=== PATIENT | female | born 1995 | race Caucasian/White ===

== ENCOUNTER 2022-04-17 14:43 | Outpatient (CLI) | payer SELFPAY ==
--- NOTE | 2022-04-17 15:00 | US_ITS ---
Final Report Patient: ALVIN AU Facility:?[facility] Patient ID:[id number] Site Patient ID:?[id number] Site :?1995 Study:?US OB Pelvis TV DATING/VIABILITY-04/18/2022 8:47:26 AM Ordering Physician:?CÉSAR AYON CPM Final Report: INDICATION: First trimester scan, establish dates. COMPARISON: None. TECHNIQUE: Real-time curry-scale imaging of the pelvis was performed. FINDINGS: Sonographic imaging demonstrates a single living intrauterine gestation. The embryo demonstrates a regular cardiac rate measuring 166 beats per minute. The embryo`s crown-rump length measurement of 1.6 cm corresponds to a gestational age of 8 weeks 0 days with a sonographic due date of 11/27/2022. There is a normal-appearing yolk sac. There are no gross abnormalities noted within the embryo at this early state of development. The gestational sac has a normal appearance. There is a 2.2 x 1.1 x 1.7 cm perigestational hemorrhage. The amount of fluid within the sac appears appropriate for gestational age. The cervix is closed. The myometrium appears normal. The ovaries are of normal size. Corpus luteal cyst left ovary. There are no suspicious fluid collections noted in the cul-de-sac. IMPRESSION: Single living intrauterine with sonographic gestational age 8 weeks 0 days and sonographic due date 11/27/2022. Perigestational hemorrhage measuring 2.2 x 1.1 x 1.7 cm. Dictated by Dl Acosta MD @ 04/18/2022 9:32:31 AM (Electronic Signature)
== END 2022-04-17 14:44 | disposition home or self-care (01) ==
DX: Z34.91 Encounter for supervision of normal pregnancy, unspecified, first trimester (principal); O20.9 Hemorrhage in early pregnancy, unspecified; Z3A.08 8 weeks gestation of pregnancy
CPT/HCPCS: 76817

== ENCOUNTER 2022-07-10 09:38 | Outpatient (CLI) | payer SELFPAY ==
--- NOTE | 2022-07-10 09:45 | CRLHL7_ITS ---
For Patients: As a result of the Century Cures Act, medical imaging exams and procedure reports are released immediately into your electronic medical record. You may view this report before your referring provider. If you have questions, please contact your health care provider. OB ULTRASOUND, 07/10/2022 SHASTA by LMP: 11/27/2022. GA: 20 w, 0 d. . P: 2. INDICATION: anatomy survey. FINDINGS: position: Multiple positions. Cervix: Visualized. Technique: Transabdominal. Length of closed cervix: 3.5 cm. Placenta/cord: Anterior. Technique: Transabdominal. Placenta tip to internal OS: 3.1 cm. Umbilical Cord: 3-vessel cord. Placenta insertion: Central. Amniotic Fluid: 4.2 cm SDP (greater than/equal to: 2- less than 8 cm). SURVEY: Observed Structures Cerebellum: Yes. 20 cm; 20 w 0 d. Cisterna Magna: Yes. 5.2 mm. Nuchal Fold: Yes. 2.2 mm. Lateral Ventricle: Yes. 5.9 mm. CSP: Yes. Midline Falx: Yes. Choroid Plexus: Yes. Spine: Yes. Stomach: Yes. Abd Cord Insertion: Yes. Urinary Bladder: Yes. Kidneys: Yes. Diaphragm: Yes. Nose/lips: Yes. Orbital view: Yes. Profile: Yes. Upper Extremities: Yes. Lower Extremities: Yes. Hands: Yes. Feet: Yes. Four-Chamber Heart: Yes. LVOT: Yes. RVOT: Yes. BPD: 4.4 cm. 19 w 3 d, 24 percent. HC: 16.9 cm. 19 w 4 d, 21 percent. AC: 14.6 cm. 19 w 6 d, 42 percent. FL: 3.1 cm. 19 w 4 d, 26 percent. FL/AC: 21 percent. HC/AC Ratio: 1.2. Heart rate: 159 beats per minute. age by this US: 19 w 5 d. SHASTA by this US: 11/29/2022. EFW: 308 g. Weight: 0 lbs, 11 oz. Percentile by SHASTA: 29 percent. IMPRESSION: Single live intrauterine gestation with a composite gestational age of 19 weeks 5 days and SHASTA of 11/29/2022. No gross anomalies visualized. Bette Knight M.D. Diagnostic/Breast Radiologist [email or web address] KRISTOPHER/fernando king/Dictated by: Bette Knight MD @ 07/10/2022 11:43:00 AM (Electronically Signed)
== END 2022-07-10 09:39 | disposition home or self-care (01) ==
DX: Z34.82 Encounter for supervision of other normal pregnancy, second trimester (principal); Z13.79 Encounter for other screening for genetic and chromosomal anomalies; Z3A.19 19 weeks gestation of pregnancy
CPT/HCPCS: 76805

== ENCOUNTER 2024-02-03 17:46 | Emergency (ER) | payer MEDICAID, SELFPAY ==
[2024-02-03 17:54] VITALS: BP 113/79; PULSE 73; RESP 16; TEMP 36.8; O2SAT 98; BMI 22.7
--- NOTE | 2024-02-03 18:03 | ED_ITS ---
HPI - Abdominal Pain General Time Seen by Provider: 18:03 Date Seen: 02/03/24 Chief Complaint: Abdominal Pain Stated Complaint: bloating, intense pain in mid abdomen Time Seen by Provider: 02/03/24 17:48 Source: patient and RN notes reviewed Mode of arrival: ambulatory Limitations: no limitations History of Present Illness HPI narrative: This 29-year-old female is coming in and the request of the triage nurse she talked to about abdominal pain. Patient had an episode of abdominal pain starting yesterday afternoon, started with bloating and then intense abdominal pain for about 4 hours. She states there is some underlying pain but also a searing type pain within that. No fevers. She had a stool yesterday, feels like she had to push, seemed more stringy. No blood in her stools. She felt a little nauseated yesterday, no vomiting. She has not really eaten much since this started to minimize symptoms. She feels like it might get worse if she did eat. She does not know that eating precipitated this however. She had a little increase of the pain this morning, still feels bloated. Is not burping, is passing some gas. She has not had any abdominal surgeries. She has had 3 pregnancies, is still nursing her youngest 2 is about [id number]. She notes that her 1st episode of this pain happened at age 16. She did have more episodes during her 1st . She will maybe have them about twice a year. No history of pancreatitis. She still has her gallbladder. She actually is not feeling that bad right now. Her dad does have Crohn's disease. MD elicited complaint: abdominal pain Related Data Hx Last Menstrual Period: Breast-feeding currently Home Medications Medication Instructions Recorded Confirmed hydroxyzine HCl 25 mg tablet 25 mg PO QPM PRN anxiety 02/03/24 02/03/24 sertraline 50 mg tablet 50 mg PO DAILY 02/03/24 02/03/24 Allergies Allergy/AdvReac Type Severity Reaction Status Date / Time No Known Drug Allergies Allergy Verified 02/03/24 18:01 Review of Systems Status of ROS Reports: 6 or more systems reviewed and unremarkable except as noted in History and below PFSH PFSH Social History Smoking Status: Current some day smoker Do you use any of these nicotine containing products: Vaping Products How often do you have a drink containing alcohol: monthly or less How often do you have six or more drinks on one occasion: Never AUDIT-C Alcohol total score: 1 Non-prescribed substance use: denies use Exam Const: Vital Signs, click to edit/add: Vital Signs - 24 hr 02/03/24 17:54 Temperature 98.2 F Pulse Rate [Pulse Oximeter] 73 Respiratory Rate 16 Blood Pressure [Ri ght Upper Arm] 113/79 Pulse Oximetry 98 Oxygen Delivery Me thod Room Air This is a very pleasant 29-year-old female that is ambulatory into the ED of her own accord. Pupils are equal round, sclera clear, symmetrical facial function. Oropharynx with normal mucosa, no exudates or erythema, scarring from presumed previous tonsillectomy on bilateral sidewalls. Lungs are clear, good air entry, no wheezing or crackles, patient sits up easily. CV regular rate and rhythm, no murmur, normal S1-S2, no S3-S4. Abdomen does look mildly distended but there is no organomegaly, no masses, no tenderness. Bowel sounds are present. Skin visualized without any rash or jaundice. Documenting provider has reviewed patient's vital signs: yes Course Course ED Course: Urinalysis has been collected, will also check this for urine status. Abdominal bloating in the context of no prior abdominal surgeries makes obstruction less likely. She is not drinking any alcohol but still could be pancreatitis. Will get baseline labs, guide imaging accordingly. At minimum will do flat and upright on her. Did review with her that we might need CT imaging. For a chew workup for underlying inflammatory bowel disease, endoscopy/colonoscopy would be indicated but we do not do that emergently, she has no active GI bleeding. She does understand this, is actually feeling better at this time. Reevaluation(s) Time of Reevaluation #1: 19:19 Reevaluation #1: Reviewed with Alvin that her labs are all reassuring, no concerning abnormalities including normal inflammatory markers. Her abdominal imaging is not showing any concerning bowel pathology, there certainly may be constipation. We discussed discharge, follow-up outpatient with her primary care provider for further discussion of her ongoing episodic abdominal issues that have been happening for years now. Vital Signs Vital signs: Initial Vital Signs Temperature 98.2 F 02/03/24 17:54 Temperature Source Temporal Artery Scan 02/03/24 17:54 Pulse Rate 73 02/03/24 17:54 Respiratory Rate 16 02/03/24 17:54 Blood Pressure 113/79 02/03/24 17:54 Blood Pressure Mean 90 02/03/24 17:54 Blood Pressure Position Sitting 02/03/24 17:54 Pulse Oximetry 98 02/03/24 17:54 Oxygen Delivery Method Room Air 02/03/24 17:54 Vital Signs Temperature 98.2 F 02/03/24 17:54 Pulse Rate 73 02/03/24 17:54 Respiratory Rate 16 02/03/24 17:54 Blood Pressure 113/79 02/03/24 17:54 Pulse Oximetry 98 02/03/24 17:54 Oxygen Delivery Method Room Air 02/03/24 17:54 Temperature 98.2 F 02/03/24 17:54 Pulse Rate 73 02/03/24 17:54 Respiratory Rate 16 02/03/24 17:54 Blood Pressure 113/79 02/03/24 17:54 Pulse Oximetry 98 02/03/24 17:54 Oxygen Delivery Method Room Air 02/03/24 17:54 MDM - Abdominal Pain Lab Data Attestation: I reviewed the patient's lab results. Labs: Lab Results 02/03/24 02/03/24 Range/Units 18:00 18:22 WBC 6.10 (4.50-11.00) K/uL RBC 4.12 (4.00-5.20) m/uL Hgb 12.9 (12.0-16.0) gm/dL Hct 38.7 (33.0-51.0) % MCV 94 (80-100) fL MCH 31 (26-34) pg MCHC 33 (32-36) gm/dL RDW Coeff of Jennifer 13.0 (11.5-15.5) % Plt Count 244 (140-440) K/uL Neut % (Auto) 59.4 (42.0-72.0) % Lymph % (Auto) 33.1 (20-44) % [place] % (Auto) 5.4 (0.0-11.0) % Eos % (Auto) 1.1 (0.0-7.0) % Baso % (Auto) 0.3 (0.0-3.0) % Neut # (Auto) 3.62 (1.7-7.0) K/uL Lymph # (Auto) 2.02 (0.90-2.90) K/uL [place] # (Auto) 0.30 (0.00-0.90) K/UL Eos # (Auto) 0.07 (0.00-0.50) K/uL Baso # (Auto) 0.02 (0.00-0.30) K/uL Abs Immat Gran (auto) 0.04 (0.00-0.30) K/uL Imm/Tot Granulo (auto) 0.7 % ESR 5 (2-20) mm/hr Sodium 141 (135-149) mmol/L Potassium 3.7 (3.6-5.1) mmol/L Chloride 106 (96-114) mmol/L Carbon Dioxide 26 (20-32) mmol/L Anion Gap 9 (7-15) mEq/L BUN 19 (5-24) mg/dL Creatinine 0.6 (0.5-1.5) mg/dL Estimated Creat Clear 117.31 Estimated GFR 123 ml/min Glucose 92 (60-115) mg/dL Lactate 0.7 (0.5-1.9) mmol/L Calcium 10.1 (8.4-10.6) mg/dL Total Bilirubin 0.3 (0.1-1.5) mg/dL Direct Bilirubin 0.1 (0.0-0.5) mg/dL AST 26 (12-35) U/L ALT 17 (4-35) U/L Alkaline Phosphatase 76 (40-150) U/L C-Reactive Protein < 0.5 L (0.5-1.0) mg/dL Total Protein 7.9 (6.0-8.3) g/dL Albumin 4.8 (3.3-5.0) g/dL Lipase 127 (23-300) U/L Urine Color Light yellow (Yellow) Urine Appearance Cloudy A (Clear) Urine pH 7.5 (5.0-8.5) Ur Specific [place] 1.025 (1.000-1.030) Urine Protein Negative (Negative) Urine Glucose (UA) Negative (Negative) Urine Ketones Negative (Negative) Urine Blood Negative (Negative) Urine Nitrite Negative (Negative) Urine Bilirubin Negative (Negative) Urine Urobilinogen 0.2 (0.2-1.0) Ur Leukocyte Esterase Negative (Negative) Urine RBC 0-2 (0-2) Urine WBC 0-2 (0-5) Ur Squamous Epith Cells None (None-Few) Amorphous Sediment Many A (None) Urine Bacteria None (None) Urine HCG, Qual Negative (Negative) Imaging Data Abdominal x-ray: Attestation: I have reviewed the pertinent imaging results. My impression: Did review her abdominal imaging, do think there is probable constipation, no evidence of obstruction. Will await Radiology over-read. Radiologist's impression: Patient: ALVIN AU Facility:?[facility] Patient ID:?[id number] Site Patient ID:?[id number]. Site :?1995 Study:?XRay-Abdomen 2 VIEW-02/03/2024 7:11:56 PM Ordering Physician:LADAN Final Report: INDICATION: Abdominal pain TECHNIQUE: Abdominal radiographs, 2 views. COMPARISON: None. FINDINGS: Lower chest: Unremarkable. Bowel: No bowel obstruction. Unremarkable bowel gas pattern. Moderate colonic stool burden, correlate for constipation. Soft tissues: Unremarkable. Bones: No acute osseous abnormalities. IMPRESSION: No bowel obstruction. Unremarkable abdominal radiographs Dictated by Dean Franco MD @ 02/03/2024 7:17:07 PM (Electronic Signature) Critical Care Time Critical Care Time Critical Care Time: No Discharge Plan Discharge Clinical Impression: Abdominal pain Qualifiers: Abdominal location: upper abdomen, unspecified Qualified Code(s): R10.10 - Uppe r abdominal pain, unspecified Patient Disposition: Home, Self-Care Condition: Stable Instructions: Constipation (ED), High Fiber Diet (ED) Additional Instructions: Abdominal imaging suggest constipation. Review handouts provided. With high- fiber diet, do also recommend adequate fluid intake. Follow-up with your primary care provider to discuss further management and evaluation of your abdominal symptoms. If you should ever develops severe abdominal pain in the setting of fever or vomiting, we would recommend emergent evaluation. Activity Level: Activity as Tolerated Prescriptions: No Action hydroxyzine HCl 25 mg tablet 25 mg PO QPM PRN (Reason: anxiety) sertraline 50 mg tablet 50 mg PO DAILY Follow Up/Referrals: Provider,Not a Local [Primary Care Provider] - Stand Alone Forms: [employer] Info Instructions
[2024-02-03 18:16] LABS: Appearance Urine Cloudy (Clear); Bilirubin Urine Negative (Negative); Blood Urine Negative (Negative); Color Urine Light yellow (Yellow); Glucose Urine Negative (Negative); Ketones Urine Negative (Negative); Leukocyte Esterase Urine Negative (Negative); Nitrite Urine Negative (Negative); Protein Urine Negative (Negative); Specific Gravity Urine 1.025 (1.000-1.030); Urobilinogen Urine 0.2 (0.2-1.0); pH Urine 7.5 (5.0-8.5)
[2024-02-03 18:17] LABS: Ur HCG Qualitative* Negative (Negative)
[2024-02-03 18:23] LABS: Amorphous Sediment Urine Many; RBC Urine 0-2 (0-2); WBC Urine 0-2 (0-5)
[2024-02-03 18:29] LABS: Lactate* 0.7 mmol/L (0.5-1.9)
--- OUTSIDE RECORDS SUMMARY | 2024-02-03 18:29 | XMS_ITS | Clinical Summary ---
Author Name Unknown Organization [facility] Address [place], [place] [address] Care Team Providers Care Booth Operator Name Role Phone Pau Cruz Primary Care Provider [phone] Allergies No known active allergies Medications Medication Sig Dispensed Refills Start Date End Date Status valACYclovir (VALTREX) 500 mg tabletIndications:Ge nital herpes simplex, unspecified site Start 500mg twice daily at 36wks until delivery. 84 tablet 12/05/2018 Active hydrOXYzine HCL (ATARAX) 25 mg tabletIndications:Ge neralized anxiety disorder Take 1 Tablet (25 mg) by mouth every 6 hours if needed for Anxiety. 25 Tablet 06/27/2022 Active sertraline (ZOLOFT) 50 mg tabletIndications:An xiety Start 25mg daily x 1 week then increase to 50mg daily. 30 Tablet 11/02/2022 Active Active Problems Problem Noted Date Diagnosed Date Spontaneous labor, first in third trim margarita 08/22/2014 Smoker 12/15/2013 ADD (attention deficit disorder) 01/02/2013 Allergic rhinitis 10/26/2010 Overview: On nasonex Asthma 10/26/2010 Overview: On Advair 100/50 , zyrtec and albuterol Generalized anxiety disorder 07/09/2010 Overview: Used zoloft in the past, she needed to take it again after Estimated Date of Delivery Comme nts Yes 11/27/2022 Resolved Problems Problem Noted Date Diagnosed Date Resolved Date Other, mixed, or unspecified nondependent drug abuse, in remission 11/29/2010 08/22/2014 Encounters Date Type Department Care Team Description 02/03/2024 Nurse Triage [facility] [place] [address] [place] [address] Pau Cruz DO Abdominal Pain from Last 3 Months Immunizations Name Administration Dates Next Due Tdap 06/22/2014 Family History Medical History Relation Name Comments Psychiatric illness Brother bipolar Crohn's disease Father Hyperlipidemia Father Diabetes Maternal Grandfather Psychiatric illness Maternal Grandmother bipolar Hypertension Mother Psychiatric illness Sister bipolar Relation Name Status Comments Brother Father Maternal Grandfather Maternal Grandmother Mother Sister Social History Tobacco Use Types Packs/Day Years Used Date Smoking Tobacco: Former Smokeless Tobacco: Never Tobacco Cessation:Counseling Given: Yes Alcohol Use Standard Drinks/Week Comments Never 8 (1 standard drink = 0.6 oz pur e alcohol) PHQ-2 Answer Date Recorded PHQ-2 TOTAL SCORE 4 06/27/2022 Social Connections Answer Date Recorded Frequency of Communication with Friends and Fami ly Not on file 06/27/2022 Estimated Date of Delivery Comme nts Yes 11/27/2022 Sex and Gender Information Value Date Recorded Sex Assigned at Not on file Gender Identity Not on file Sexual Orientation Not on file Obstetrics History Para Term AB IAB SAB Ectopic Multiple Livin g Live Births 3 1 1 1 1 Date Outcome GA Total Labor Labor/2nd/3rd Weight Sex Delivery Anes PTL Umu A1 A5 Name Cl in 08/22 Term 40w 4d Vag Gina ng Current Last Filed Vital Signs Vital Sign Reading Time Taken Comments Blood Pressure 108/69 07/21/2022 9:05 AM CDT Pulse 85 07/21/2022 9:05 AM CDT Temperature 36.6 ??C (97.9 ??F) 07/21/2022 9:05 AM CD T Respiratory Rate 20 10/24/2016 12:00 AM [facility] Oxygen Saturation 99% 07/21/2022 9:05 AM CDT Inhaled Oxygen Concentration - - Weight 66.8 kg (147 lb 3.2 oz) 07/21/2022 9:05 A M CDT Height 165.1 cm (5' 5) 10/28/2018 2:17 PM [facility] Body Mass Index 24.5 10/28/2018 2:17 PM [facility] Plan of Treatment Health Maintenance Due Date Last Done Comments BMI (ht and wt on same day) for age 18+ 10/28/2019 10/28/2018, 12/24/2017, 09/25/2017, Additional history exists Pap test for age 21-65 12/24/2020 12/24/2017 COVID-19 vaccine series (2022-24 season) 2023 Depression screening for age 12+ 06/27/2023 06/27/2022, 05/29/2019, 12/02/2018, Additional history exists Influenza for age 9-49 06/08/2024 Tetanus booster 06/22/2024 06/22/2014 Tdap Completed 06/22/2014 HIV for age 15-65 Completed 12/02/2018, 01/06/2010 Hepatitis C screening for age 18-79 Completed 12/02/2018 Pneumococcal series for age 6-64 Aged Out No longer eligible based on patient's age to complete this topic Procedures Procedure Name Priority Date/Time Associated Diagnosis Comments ANTI HIV 1/2 Routine 12/02/2018 12:16 PM [facility] Encounter for supervision of normal first in first trimester ANTI HCV Routine 12/02/2018 12:16 PM [facility] Encounter for supervision of normal first in first trimester 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 Blood BLOOD SPECIMEN / Unknown Venipuncture / Unknown 12/02/2018 12:16 PM [employer]IM AD[employer]OCATE 12/02/2018 12:16 PM [facility] AD[facility] Keely MURILLO [facility] [address] [place] [address], [place] * ANTI HIV 1/2 (12/02/2018 12:16 PM VICTIM AD[facility]OCATE) [facility] HIV-1/HIV-2 ANTIBODY Non-Reacti ve Non-Reacti ve 12/02/2018 4:54 PM VICTIM ADVOCATE [facility] Comment:HIV-1 p24 and HIV-1/ HIV-2 Ab not detected. Blood BLOOD SPECIMEN / Unknown Venipuncture / Unknown 12/02/2018 12:16 PM [facility]IM AD[employer]OCATE 12/02/2018 12:16 PM [facility]CTIM ADVOCATE Keely MURILLO [facility] 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 Case: [id number] ? Authorizing Provider: ??Pau Cruz DO ?Collected: ? 12/24/2017 1415 ? Ordering Location: ? [facility] ?? Received: ?12/24/2017 1444 ? Clinic ? First Screen: ?Leila Luke ? 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 12/31/2017 3:13 PM CDT [facility]AL [facility] INTERPRETATION/ RESULT NEGATIVE FOR INTRAEPITHELIAL LESION OR MALIGNANCY (NIL) (none) 12/31/2017 3:13 PM CDT [facility] IMEN ADEQUACY Satisfactory for evaluation Endocervical component present 12/31/2017 3:13 PM CDT [facility] HPV REQUEST HPV if ASCUS 12/31/2017 3:13 PM CDT [facility] Date of LMP 12/10/2017 12/31/2017 3:13 PM CDT [facility] Last Pap Date unsure 12/31/2017 3:13 PM CDT [facility] Last Pap Result First Pap/Unknown 3:13 PM CDT [facility] Abnormal Pap or [place] Bx in last 5 years No 12/31/2017 3:13 PM CDT [facility] Menstrual Status Regular Periods 12/31/2017 3:13 PM CDT [facility] [place] Bx Done Today No 12/31/2017 3:13 PM CDT [facility] Additional Information None given 12/31/2017 3:13 PM CDT [facility] Automated Review Successful 12/31/2017 3:13 PM CDT [facility] Comment:Specimen processed s uccessfully by automated voltage tester device, ThinPrep Imaging System, [employer] Note The pap test is a screening technique, not a diagnostic procedure. ??It is used primarily to screen for squamous cancers and precursor lesions. ??Published studies have shown that it is subject to both false negative and false positive results. ??The pap test should not be used as the sole means to diagnose or exclude pre-malignant and malignant lesions. Interpreted at [facility] ([facility], [facility], [facility], [facility], [facility] [place], [facility], [facility]) 12/31/2017 3:13 PM CDT [facility] Other (Cervical) Non-Blood / Unknown 12/24/2017 2:15 PM CDT 12/24/2017 2:44 PM CDT Pau Cruz DO PATHOLOGY/[facility] [address] [place] [address], [place] from Last 3 Months or Most Recently Relevant to Health Maintenance Advance Directives * Full Code (Latest Code Status on File) Date Activated Date Inactivated Comments 08/22/2014 10:56 AM 08/22/2014 7:25 PM Care Teams Booth Operator Relationship Specialty Start Date End Date Pau Cruz DO [address] [place] [address] PCP - General Family Practice 12/07/17
[2024-02-03 18:30] LABS: Basophils Absolute Auto 0.02 K/uL (0.00-0.30); Basophils Percent Auto 0.3 % (0.0-3.0); Eosinophils Absolute Auto 0.07 K/uL (0.00-0.50); Eosinophils Percent Auto 1.1 % (0.0-7.0); Hematocrit 38.7 % (33.0-51.0); Hemoglobin* 12.9 gm/dL (12.0-16.0); Immature Granulocytes Abs Auto 0.04 K/uL (0.00-0.30); Immature Granulocytes Pct Auto 0.7 %; Lymphocytes Absolute Auto 2.02 K/uL (0.90-2.90); Lymphocytes Percent Auto 33.1 % (20-44); Mean Corpuscular HGB Conc 33 gm/dL (32-36); Mean Corpuscular Hemoglobin 31 pg (26-34); Mean Corpuscular Volume 94 fL (80-100); Monocytes Percent Auto 5.4 % (0.0-11.0); Neutrophils Absolute Auto 3.62 K/uL (1.7-7.0); Neutrophils Percent Auto 59.4 % (42.0-72.0); Platelet Count* 244 K/uL (140-440); Red Blood Count 4.12 m/uL (4.00-5.20)
[2024-02-03 18:31] LABS: Slide Review Reflex No
[2024-02-03 18:46] LABS: Albumin* 4.8 g/dL (3.3-5.0); Chloride* 106 mmol/L (96-114); Sodium* 141 mmol/L (135-149)
[2024-02-03 18:47] LABS: Potassium* 3.7 mmol/L (3.6-5.1)
[2024-02-03 18:48] LABS: Creatinine* 0.6 mg/dL (0.5-1.5); Est. Creatinine Clearance* 117.31
[2024-02-03 18:49] LABS: Anion Gap 9 mEq/L (7-15); Aspartate Amino Transferase* 26 U/L (12-35); Bilirubin Direct* 0.1 mg/dL (0.0-0.5); Bilirubin Total* 0.3 mg/dL (0.1-1.5); Blood Urea Nitrogen* 19 mg/dL (5-24); Carbon Dioxide* 26 mmol/L (20-32); Estimated Glomerular Filt Rate 123 ml/min; Total Protein* 7.9 g/dL (6.0-8.3)
[2024-02-03 18:50] LABS: Alanine Aminotransferase* 17 U/L (4-35); Alkaline Phosphatase* 76 U/L (40-150); Glucose* 92 mg/dL (60-115)
[2024-02-03 18:51] LABS: Calcium* 10.1 mg/dL (8.4-10.6); Lipase* 127 U/L (23-300)
[2024-02-03 18:52] LABS: C Reactive Protein* < 0.5 mg/dL (0.5-1.0)
--- NOTE | 2024-02-03 18:53 | XR_ITS ---
Patient: ALVIN AU Facility:?[facility] Patient ID:?[id number] Site Patient ID:?[id number]. Site :?1995 Study:?XRay-Abdomen 2 VIEW-02/03/2024 7:11:56 PM Ordering Physician:LADAN Final Report: INDICATION: Abdominal pain TECHNIQUE: Abdominal radiographs, 2 views. COMPARISON: None. FINDINGS: Lower chest: Unremarkable. Bowel: No bowel obstruction. Unremarkable bowel gas pattern. Moderate colonic stool burden, correlate for constipation. Soft tissues: Unremarkable. Bones: No acute osseous abnormalities. IMPRESSION: No bowel obstruction. Unremarkable abdominal radiographs Dictated by Dean Franco MD @ 02/03/2024 7:17:07 PM Signed by:?Dean Franco MD @02/03/2024 7:17:07 PM (Electronic Signature)
[2024-02-03 19:09] LABS: Erythrocyte SedimentationRate* 5 mm/hr (2-20)
== END 2024-02-03 19:33 | disposition home or self-care (01) ==
PROVIDERS: Emergency Provider Family Medicine
DX: R10.10 Upper abdominal pain, unspecified (principal)
CPT/HCPCS: 36415; 74019; 80053; 81001; 81025; 82248; 83605; 83690; 85025; 85651; 86140; 99283; 99284

== ENCOUNTER 2024-03-04 18:43 | Emergency (ER) | payer MEDICAID, SELFPAY ==
[2024-03-04 18:46] VITALS: BP 124/87; PULSE 87; RESP 20; TEMP 37.1; O2SAT 96; BMI 22.7
--- OUTSIDE RECORDS SUMMARY | 2024-03-04 19:19 | XMS_ITS | Clinical Summary ---
Author Organization [employer] Address [place], [place] [address] Care Team Providers Care Notch Machine Operator Name Role Phone Pau Cruz Primary Care Provider [phone] Allergies No known active allergies Medications Medication [...] Department Care Team Description 02/03/2024 Nurse Triage [facility] [address] [place] [address] Pau Cruz DO Abdominal Pain from Last [...] T Respiratory Rate 20 10/24/2016 12:00 AM FIELD SUPPORT REPRESENTATIVE Oxygen Saturation 99% 07/21/2022 9:05 AM CDT Inhaled Oxygen Concentration - - Weight 66.8 kg (147 lb 3.2 oz) 07/21/2022 9:05 A M CDT Height 165.1 cm (5' 5) 10/28/2018 2:17 PM FIELD SUPPORT REPRESENTATIVE Body Mass Index 24.5 10/28/2018 2:17 PM FIELD SUPPORT REPRESENTATIVE Plan of Treatment Health Maintenance Due Date [...] ANTI HIV 1/2 Routine 12/02/2018 12:16 PM FIELD SUPPORT REPRESENTATIVE Encounter for supervision of normal first in first trimester ANTI HCV Routine 12/02/2018 12:16 PM FIELD SUPPORT REPRESENTATIVE Encounter for supervision of normal first in first trimester SCIENCE EDUCATION PROFESSOR THIN PREP PAP SCREEN IMAGED Routine 12/24/2017 2:15 PM CDT Screening for malignant neoplasm of cervix from Last 3 Months or Most Recently Relevant to Health Maintenance Results * ANTI HCV (12/02/2018 12:16 PM FIELD SUPPORT REPRESENTATIVE) HEPATITIS C ANTIBODY Non-React jaylin Non-React jaylin 12/02/2018 4:53 PM FIELD SUPPORT REPRESENTATIVE [facility] Comment:Antibodies to HCV no t detected; does not exclude the possibility of exposure to HCV. Blood BLOOD SPECIMEN / Unknown Venipuncture / Unknown 12/02/2018 12:16 PM FIELD SUPPORT REPRESENTATIVE 12/02/2018 12:16 PM FIELD SUPPORT REPRESENTATIVE Keely MURILLO [facility] [address] [place] [address], * ANTI HIV 1/2 (12/02/2018 12:16 PM FIELD SUPPORT REPRESENTATIVE) Pathologist [facility] HIV-1/HIV-2 ANTIBODY Non-Reacti ve Non-Reacti ve 12/02/2018 4:54 PM FIELD SUPPORT REPRESENTATIVE [facility] Comment:HIV-1 p24 and HIV-1/ HIV-2 Ab not detected. Blood BLOOD SPECIMEN / Unknown Venipuncture / Unknown 12/02/2018 12:16 PM FIELD SUPPORT REPRESENTATIVE 12/02/2018 12:16 PM FIELD SUPPORT REPRESENTATIVE Keely MURILLO [facility] [address] [place] [address], * SCIENCE EDUCATION PROFESSOR THIN PREP PAP SCREEN IMAGED [[id number]] (12/24/2017 2:15 PM CDT) [facility] Case Report Gynecologic Cytology Report ? Case: [id number] ? Authorizing Provider: ??Pau Cruz DO ?Collected: ? 12/24/2017 1415 ? Ordering Location: ? [facility] ?? Received: ?12/24/2017 1444 ? Clinic ? First Screen: ?Leila Luke ? Specimen: ?SCIENCE EDUCATION PROFESSOR ThinPrep Vial Screening, Cervical ? 12/31/2017 3:13 PM CDT [employer] ENTRAL LABORATORY INTERPRETATION/ RESULT NEGATIVE FOR INTRAEPITHELIAL LESION OR MALIGNANCY (NIL) (none) 12/31/2017 3:13 PM CDT [facility] IMEN ADEQUACY Satisfactory for evaluation Endocervical component present 12/31/2017 3:13 PM CDT [facility] HPV REQUEST HPV if ASCUS 12/31/2017 3:13 PM CDT [facility] Date of LMP 12/10/2017 12/31/2017 3:13 PM CDT [facility] ENTRAL LABORATORY Last Pap Date unsure 12/31/2017 3:13 PM CDT [facility] [employer] LABORATORY-C ENTRAL LABORATORY Last Pap Result First Pap/Unknown 3:13 PM CDT [facility] ENTRAL LABORATORY Abnormal Pap or Bly Bx in last 5 years No 12/31/2017 3:13 PM CDT [facility] [employer] EN[facility]AL LABORATORY Menstrual Status Regular Periods 12/31/2017 3:13 PM CDT [facility] EN[facility]AL [facility] Bly Bx Done Today No 12/31/2017 3:13 PM CDT [facility] Additional Information None given 12/31/2017 3:13 PM CDT [facility] Automated Review Successful 12/31/2017 3:13 PM CDT [facility] Comment:Specimen processed s uccessfully by automated manufacturing leader device, [employer], [employer] Note The pap test is a screening technique, not a diagnostic procedure. ??It is used primarily to screen for squamous cancers and precursor lesions. ??Published studies have shown that it is subject to both false negative and false positive results. ??The pap test should not be used as the sole means to diagnose or exclude pre-malignant and malignant lesions. Interpreted at [facility] (Central Lab, [facility], [facility] [place], [facility], [facility], [facility], [facility]) 12/31/2017 3:13 PM CDT [facility] Other (Cervical) Non-Blood / Unknown 12/24/2017 2:15 PM CDT 12/24/2017 2:44 PM CDT Pau Cruz DO PATHOLOGY/CYTOLOGY [facility] [address] [place] [address], [place] from Last 3 Months or Most Recently Relevant to Health Maintenance Advance Directives * Full Code (Latest Code Status on File) Date Activated Date Inactivated Comments 08/22/2014 10:56 AM 08/22/2014 7:25 PM Care Teams Notch Machine Operator Relationship Specialty Start Date End Date Pau Cruz DO [address] [place] [address] PCP - General Family Practice 12/07/17
[2024-03-04] MEDS: 0.9 % SODIUM CHLORIDE 1000 ml 1,000 ML IV (19:20)
[2024-03-04] MEDS: LORazepam 2 MG/ML inj 0.5 MG IVP (19:20)
[2024-03-04 19:27] LABS: Basophils Absolute Auto 0.05 K/uL (0.00-0.30); Basophils Percent Auto 0.8 % (0.0-3.0); Eosinophils Absolute Auto 0.11 K/uL (0.00-0.50); Eosinophils Percent Auto 1.7 % (0.0-7.0); Hematocrit 38.5 % (33.0-51.0); Hemoglobin* 12.7 gm/dL (12.0-16.0); Lymphocytes Percent Auto 44.9 % (20-44); Mean Corpuscular HGB Conc 33 gm/dL (32-36); Mean Corpuscular Hemoglobin 31 pg (26-34); Mean Corpuscular Volume 93 fL (80-100); Neutrophils Absolute Auto 3.06 K/uL (1.7-7.0); Neutrophils Percent Auto 48.6 % (42.0-72.0); Platelet Count* 253 K/uL (140-440); RDW Coefficient of Variation % 12.9 % (11.5-15.5); Red Blood Count 4.14 m/uL (4.00-5.20)
--- NOTE | 2024-03-04 19:27 | ED.GENADULT ---
HPI - General Adult General Chief complaint: Alcohol/Intoxication Stated complaint: Alcohol withdrawal Time Seen by Provider: 03/04/24 18:44 Source: patient Mode of arrival: ambulatory Limitations: no limitations History of Present Illness HPI narrative: 29-year-old female coming in today requesting to be ?checked out?. Patient states she has been drinking alcohol for the last 4 months daily. She states that she started out drinking about 20 beers a day and then moved on to vodka. She states that she drinks 1 L of vodka daily. She states that she was sober for 3 years prior to this and then started drinking again. Patient has children at home and she is very upset that she can stop drinking. She is requesting to be checked out today to make sure there is nothing wrong with her electrolytes and blood counts and she is requesting resources for outpatient treatment. Patient states she does not want to go to detox. She states that she has been there in the past and it did not do anything for her. She feels that she can detox properly at home as long she has some outpatient resources. She denies any withdrawal seizures or delirium tremens. She states that she is and her is taking care of her children right now. Patient states that she drinks heavily because she feels anxious all the time. She is requesting something to help with her anxiety today. Related Data Home Medications ?Medication ?Instructions ?Recorded ?Confirmed hydroxyzine HCl 25 mg tablet 25 mg PO QPM PRN anxiety 02/03/24 03/04/24 sertraline 50 mg tablet 50 mg PO DAILY 02/03/24 03/04/24 Allergies Allergy/AdvReac Type Severity Reaction Status Date / Time No Known Drug Allergies Allergy Verified 03/04/24 18:45 Review of Systems Status of ROS: Reports: 10 or more systems reviewed and unremarkable except as noted in History and below [facility] Social History Smoking Status: Current every day smoker Do you use any of these nicotine containing products: Vaping Products Second hand tobacco smoke exposure: No How often do you have a drink containing alcohol: 4 or more times a week How often do you have six or more drinks on one occasion: Daily or almost daily AUDIT-C Alcohol total score: 8 Non-prescribed substance use: denies use Exam Narrative: Exam Narrative: Well-nourished well-developed patient, tearful. Alert and oriented x3. Answers questions appropriately. Mood and affect are appropriate. Thoughts are goal oriented and rational. No tangential or magical thinking noted. Patient speaks in full sentences without needing to catch her breath. Speech is slightly slurred. The patient is conversing quite normally. HEENT: Normocephalic atraumatic. Pupils are equally round reactive to light. Extraocular muscles are intact. Conjunctivae are moist without any icterus noted, glassy. Moist mucous membranes. Posterior pharynx is normal. Neck is soft without any lymphadenopathy or thyromegaly. No masses are appreciated. Cardiovascular: Heart is regular rate and rhythm S1 and S2 are present without any murmurs. Lungs: Clear to auscultation bilaterally no wheezes rhonchi or rales are appreciated. Patient takes deep breaths without any discomfort. Abdomen: Soft and nontender nondistended with normal bowel sounds. Skin: Exposed skin is perfused without any obvious rashes. Const: Vital Signs, click to edit/add: Vital Signs - 24 hr 03/04/24 18:46 Temperature 98.7 F Pulse Rate [Pulse Oximeter] 87 Respiratory Rate 20 Blood Pressure [Ri ght Upper Arm] 124/87 Pulse Oximetry 96 Oxygen Delivery Me thod Room Air Course Course ED Course: IV was established and patient is given normal saline Ativan. She did feel better. Lab work included a CBC which was unremarkable. Chemistries were entirely normal. LFTs entirely normal. Negative test. Blood alcohol level 0.3. Vital Signs Vital signs: Initial Vital Signs Temperature 98.7 F 03/04/24 18:46 Temperature Source Temporal Artery Scan 03/04/24 18:46 Pulse Rate 87 03/04/24 18:46 Respiratory Rate 20 03/04/24 18:46 Blood Pressure 124/87 03/04/24 18:46 Blood Pressure Mean 99 03/04/24 18:46 Blood Pressure Position Sitting 03/04/24 18:46 Pulse Oximetry 96 03/04/24 18:46 Oxygen Delivery Method Room Air 03/04/24 18:46 Vital Signs Temperature 98.7 F 03/04/24 18:46 Pulse Rate 87 03/04/24 18:46 Respiratory Rate 20 03/04/24 18:46 Blood Pressure 124/87 03/04/24 18:46 Pulse Oximetry 96 03/04/24 18:46 Oxygen Delivery Method Room Air 03/04/24 18:46 Temperature 98.7 F 03/04/24 18:46 Pulse Rate 87 03/04/24 18:46 Respiratory Rate 20 03/04/24 18:46 Blood Pressure 124/87 03/04/24 18:46 Pulse Oximetry 96 03/04/24 18:46 Oxygen Delivery Method Room Air 03/04/24 18:46 Medications Administered Medications: Generic Name Dose Route Start Last Admin Trade Name Freq PRN Reason Stop Dose Admin Sodium Chloride 1,000 mls @ 1,000 mls/hr 03/04/24 19:00 03/04/24 19:20 0.9 % Sodium Chloride 1000 Ml IV 03/04/24 19:59 1,000 mls/hr .Q1H KEVIN Administration Discontinued Medications Generic Name Dose Route Start Last Admin Trade Name Freq PRN Reason Stop Dose Admin Lorazepam 0.5 mg 03/04/24 18:58 03/04/24 19:20 Lorazepam 2 Mg/Ml Inj IVP 03/04/24 18:59 0.5 mg ONCE ONE Administration Medical Decision Making MDM Narrative Medical decision making narrative: 29 year old female with alcohol use disorder and anxiety. Patient will be sent home with outpatient resources. She does have someone to go home to as her is home and her neighbor brought her here and will pick her up. Again, patient is stable medically and functional despite her blood alcohol level. Lab Data Lab results reviewed: Yes I reviewed the patient's lab results Labs: Lab Results 03/04/24 Range/Units 19:17 WBC 6.30 (4.50-11.00) K/uL RBC 4.14 (4.00-5.20) m/uL Hgb 12.7 (12.0-16.0) gm/dL Hct 38.5 (33.0-51.0) % MCV 93 (80-100) fL MCH 31 (26-34) pg MCHC 33 (32-36) gm/dL RDW Coeff of Jennifer 12.9 (11.5-15.5) % Plt Count 253 (140-440) K/uL Neut % (Auto) 48.6 (42.0-72.0) % Lymph % (Auto) 44.9 H (20-44) % Sunflower % (Auto) 4.0 (0.0-11.0) % Eos % (Auto) 1.7 (0.0-7.0) % Baso % (Auto) 0.8 (0.0-3.0) % Neut # (Auto) 3.06 (1.7-7.0) K/uL Lymph # (Auto) 2.80 (0.90-2.90) K/uL Sunflower # (Auto) 0.30 (0.00-0.90) K/UL Eos # (Auto) 0.11 (0.00-0.50) K/uL Baso # (Auto) 0.05 (0.00-0.30) K/uL Abs Immat Gran (auto) 0.00 (0.00-0.30) K/uL Imm/Tot Granulo (auto) 0.0 % Sodium 146 (135-149) mmol/L Potassium 4.1 (3.6-5.1) mmol/L Chloride 110 (96-114) mmol/L Carbon Dioxide 24 (20-32) mmol/L Anion Gap 12 (7-15) mEq/L BUN 14 (5-24) mg/dL Creatinine 0.7 (0.5-1.5) mg/dL Estimated Creat Clear 100.55 Estimated GFR 119 ml/min Glucose 85 (60-115) mg/dL Calcium 8.6 (8.4-10.6) mg/dL Magnesium 1.8 (1.5-2.6) mg/dL Total Bilirubin 0.4 (0.1-1.5) mg/dL Direct Bilirubin 0.4 (0.0-0.5) mg/dL AST 30 (12-35) U/L ALT 16 (4-35) U/L Alkaline Phosphatase 102 (40-150) U/L Total Protein 7.8 (6.0-8.3) g/dL Albumin 4.8 (3.3-5.0) g/dL HCG, Qual Negative (Negative) Ethyl Alcohol 0.30 H (0.01-0.03) % Discharge Plan Discharge Clinical Impression: Alcoholic intoxication, Anxiety, Alcohol use disorder Patient Disposition: Home w/ Parent or Adult Condition: Stable Additional Instructions: Your blood work was all normal today. Your blood alcohol level was quite elevated at 0.3. You will be sent home today with resources for outpatient alcohol use disorder treatment. Recommend you call them 1st thing in the morning. Follow-up with your primary care provider if you need guidance in setting up outpatient treatment. Prescriptions: No Action hydroxyzine HCl 25 mg tablet 25 mg PO QPM PRN (Reason: anxiety) sertraline 50 mg tablet 50 mg PO DAILY Follow Up/Referrals: Provider,Not a Local [Primary Care Provider] - Stand Alone Forms: A&E Complete Home Services Info Instructions
[2024-03-04 19:36] LABS: Albumin* 4.8 g/dL (3.3-5.0); Chloride* 110 mmol/L (96-114); Sodium* 146 mmol/L (135-149)
[2024-03-04 19:37] LABS: Potassium* 4.1 mmol/L (3.6-5.1)
[2024-03-04 19:38] LABS: Creatinine* 0.7 mg/dL (0.5-1.5); Est. Creatinine Clearance* 100.55; Estimated Glomerular Filt Rate 119 ml/min
[2024-03-04 19:39] LABS: Alkaline Phosphatase* 102 U/L (40-150); Anion Gap 12 mEq/L (7-15); Aspartate Amino Transferase* 30 U/L (12-35); Bilirubin Direct* 0.4 mg/dL (0.0-0.5); Bilirubin Total* 0.4 mg/dL (0.1-1.5); Blood Urea Nitrogen* 14 mg/dL (5-24); Calcium* 8.6 mg/dL (8.4-10.6); Carbon Dioxide* 24 mmol/L (20-32); Glucose* 85 mg/dL (60-115); Total Protein* 7.8 g/dL (6.0-8.3)
[2024-03-04 19:40] LABS: Alanine Aminotransferase* 16 U/L (4-35); Magnesium* 1.8 mg/dL (1.5-2.6)
[2024-03-04 19:42] LABS: Slide Review Reflex No
[2024-03-04 19:48] LABS: HCG Qualitative Serum* Negative (Negative)
== END 2024-03-04 20:40 | disposition home or self-care (01) ==
PROVIDERS: Emergency Provider Family Medicine
DX: F10.129 Alcohol abuse with intoxication, unspecified (principal); F41.9 Anxiety disorder, unspecified
CPT/HCPCS: 36415; 80048; 80076; 82077; 83735; 84703; 85025; 96374; 99283; 99284; J2060; J7030

== ENCOUNTER 2025-01-14 09:46 | Emergency (ER) | payer BC, SELFPAY ==
--- OUTSIDE RECORDS SUMMARY | 2025-01-14 09:48 | XMS_ITS | Encounter Summary ---
Author Organization [employer] Address [address] [place] [address] Care Team Providers Care Lapel Padder Name Role Phone Tim Martin Primary Care Provider [phone] Encounter Details Date Type Department Care Team (Latest Contact Info) Description 06/26/2014 Correspondence None No Primary/Referring, Phy RX BREAST PUMP Social History Tobacco Use Types Packs/Day Years Used Date Smoking Tobacco: Every Day Cigarettes Smokeless Tobacco: Never Chew Comments:1-2 cig/day Alcohol Use Standard Drinks/Week Comments No 3.3 (1 standard drin k = 0.6 oz pure alcohol) stopped with + test Comments Yes Sex and Gender Information Value Date Recorded Sex Assigned at Not on file Legal Sex Female 5:41 AM CDT Gender Identity Not on file Sexual Orientation Not on file 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
--- OUTSIDE RECORDS SUMMARY | 2025-01-14 09:48 | XMS_ITS | Encounter Summary ---
Author Organization [employer] Address [address], [place] [address] Care Team Providers Care Turbine Mechanic Name Role Phone Tim Martin Primary Care Provider [phone] Encounter Details Date Type Department Care Team ([facility] st Contact Info) Description 02/04/2013 Correspondence External to [facility] External, [place] [address] IMMUNIZATION RECORD Social History Tobacco Use Types Packs/Day Years Used Date Smoking Tobacco: Every Day Cigarettes 0.5 3 Smokeless Tobacco: Never Chew Comments:quit age 13 Alcohol Use Standard Drinks/Week Comments Yes 3.3 (1 standard drink = 0.6 oz p ure alcohol) Comments No Sex and Gender Information Value Date Recorded Sex Assigned at Not on file Legal Sex Female 5:41 AM CDT Gender Identity Not on file Sexual Orientation Not on file Occupation Industry Job Start Date Job End Date 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
--- OUTSIDE RECORDS SUMMARY | 2025-01-14 09:48 | XMS_ITS | Encounter Summary ---
Author Organization [employer] Address [address] [place] [address] Care Team Providers Care Tank Wagon Driver Name Role Phone Tim Martin Primary Care Provider [phone] Encounter Details Date Type Department Care Team (Late st Contact Info) Description 06/26/2014 Correspondence None No Primary/Referring, Phy HME EQUIPMENT CHEMICAL PACKAGER TICKET Social History Tobacco Use Types Packs/Day Years [...] on filedocumented in this encounter Care Teams Tank Wagon Driver Relationship Specialty Start Date End Date Tim Martin [employer]BS [address] [place] [place], [place] [address] PCP - General Family Practice 08/18/15 documented as of this encounter
--- OUTSIDE RECORDS SUMMARY | 2025-01-14 09:48 | XMS_ITS | Clinical Summary ---
Author Organization [facility] Address [address] [place] [address] Care Team Providers Care Cyber Incident Analyst Name Role Phone Unavailable Primary Care Provider Unavailabl e Allergies No known active allergies Medications hydrOXYzine HCL (ATARAX) 25 mg tabletIndicatio ns:Generalized anxiety disorder Take 1 Tablet (25 mg) by mouth every 6 hours if needed for Anxiety. 25 Tablet 06/27/2022 Active sertraline (ZOLOFT) 50 mg tabletIndicatio ns:Anxiety Start 25mg daily x 1 week then increase to 50mg daily. 30 Tablet 11/02/2022 Active Active Problems Problem Noted Date Diagnosed Date Spontaneous labor, first in third trim margarita 08/22/2014 Smoker 12/15/2013 ADD (attention deficit disorder) 01/02/2013 Allergic rhinitis 10/26/2010 Overview (06/27/2022): On nasonex Asthma 10/26/2010 Overview (06/27/2022): On Advair 100/50 , zyrtec and albuterol Generalized anxiety disorder 07/09/2010 Overview (06/27/2022): Used zoloft in the past, she needed to take it again after Resolved Problems Problem Noted Date Diagnosed Date Resolved Date Other, mixed, or unspecified nondependent drug abuse, in remission 11/29/2010 08/22/2014 Immunizations Immunization Administration Dates Next Due Tdap 06/22/2014 Family History Medical History Relation Name Comments Psychiatric illness Brother bipolar Crohn's disease Father Hyperlipidemia Father Diabetes Maternal Grandfather Psychiatric illness Maternal Grandmother bipolar Hypertension Mother Psychiatric illness Sister bipolar Relation Name Status Comments Brother Father Maternal Grandfather Maternal Grandmother Mother Sister Social History Tobacco Use Types Packs/Day Years Used Date Smoking Tobacco: Former Passive Smoke Exposure: Never Smokeless Tobacco: Never Tobacco Cessation:Counseling Given: Not Answered Alcohol Use Standard Drinks/Week Comments Not Currently 8 (1 standard drink = 0.6 oz pur e alcohol) sober for 6 days PHQ-2 Answer Date Recorded PHQ-2 TOTAL SCORE 4 06/27/2022 Social Connections Answer Date Recorded Do you often feel lonely or isolated from those around you? 0 03/11/2024 Financial Resource Strain Answer Date R ecorded Difficulty of Paying Living Expenses 2 03/11/2024 Difficulty of Paying Living Expenses 1 03/11/2024 Food Insecurity Answer Date Recorded Do you worry your food will run out before you are able to buy more? 1 03/11/2024 Transportation Needs Answer Date Record ed Does lack of transportation keep you from medica l appointments? 1 03/11/2024 Does lack of transportation keep you from work, meetings or getting things that you need? 1 03/11/2024 Housing Stability Answer Date Recorded What is your housing situation today? 1 03/11/2024 Utilities Answer Date Recorded Do you have trouble paying f or utilities (for example, heat, electricity, water, phone)? 2 03/11/2024 Comments No Sex and Gender Information Value Date Recorded Sex Assigned at Not on file Legal Sex Female 6:48 AM RN SOCIAL SERVICES Gender Identity Not on file Sexual Orientation Not on file Obstetrics History Para Term AB IAB SAB Ectopic Multiple Livin g Live Births 3 1 1 1 1 Date Outcome GA Total Labor Labor/2nd/3rd Weight Sex Type Anes PTL Umu A1 A5 Name Clin 2013 Term 40w 4d Vag Living Last Filed Vital Signs Vital Sign Reading Time Taken Comments Blood Pressure 102/72 03/11/2024 9:28 AM CDT Pulse 72 03/11/2024 9:28 AM CDT Temperature 36.6 C (97.9 F) 07/21/2022 9:05 AM CDT Respiratory Rate 12 03/11/2024 9:28 AM CDT Oxygen Saturation 99% 07/21/2022 9:05 AM CDT Inhaled Oxygen Concentration - - Weight 57.7 kg (127 lb 3.2 oz) 03/11/2024 9:28 A M CDT Height 165.1 cm (5' 5) 03/11/2024 9:28 AM CDT Body Mass Index 21.17 03/11/2024 9:28 AM CDT Plan of Treatment Health Maintenance Due Date Last Done Comments Pap test for age 21-65 12/24/2020 12/24/2017 Depression screening for age 12+ 06/27/2023 06/27/2022, 05/29/2019, 12/02/2018, Additional history exists COVID-19 vaccine series ( season) 2024 Tetanus booster 06/22/2024 06/22/2014 BMI (ht and wt on same day) for age 18+ 03/11/2025 03/11/2024, 10/28/2018, 12/24/2017, Additional history exists Influenza Vaccine (Season Ended) 2025 Tdap Completed 06/22/2014 HIV for age 15-65 Completed 12/02/2018, 01/06/2010 Hepatitis C screening for age 18-79 Completed 12/02/2018 Pneumococcal series for age 6-49 Aged Out No longer eligible based on patient's age to complete this topic Procedures Procedure Name Priority Date/Time Associated Diagnosis Comments ANTI HIV 1/2 Routine 12/02/2018 12:16 PM RN SOCIAL SERVICES Encounter for supervision of normal first in first trimester (HC) ANTI HCV Routine 12/02/2018 12:16 PM RN SOCIAL SERVICES Encounter for supervision of normal first in first trimester (HC) COTTON BUYER THIN PREP PAP SCREEN IMAGED Routine 12/24/2017 2:15 PM CDT Screening for malignant neoplasm of cervix from Last 3 Months or Most Recently Relevant to Health Maintenance Results * ANTI HCV (12/02/2018 12:16 PM RN SOCIAL SERVICES) HEPATITIS C ANTIBODY Non-React jaylin Non-React jayiln 12/02/2018 4:53 PM RN SOCIAL SERVICES [facility] Comment:Antibodies to HCV no t detected; does not exclude the possibility of exposure to HCV. Blood BLOOD SPECIMEN / Unknown Venipuncture / Unknown 12/02/2018 12:16 PM RN SOCIAL SERVICES 12/02/2018 12:16 PM RN SOCIAL SERVICES Keely MURILLO SEND OUTS Final R esult Performing Organization Address City/[facility]/ZIP Co de Phone Number [facility] [address] [place] [address], * ANTI HIV 1/2 (12/02/2018 12:16 PM RN SOCIAL SERVICES) Pathologist [facility] HIV-1/HIV-2 ANTIBODY Non-Reacti ve Non-Reacti ve 12/02/2018 4:54 PM RN SOCIAL SERVICES [facility] Comment:HIV-1 p24 and HIV-1/ HIV-2 Ab not detected. Blood BLOOD SPECIMEN / Unknown Venipuncture / Unknown 12/02/2018 12:16 PM RN SOCIAL SERVICES 12/02/2018 12:16 PM RN SOCIAL SERVICES Keely MURILLO SEND OUTS Final R esult Performing Organization Address City/[facility]/ZIP Co de Phone Number [facility] [address] [place] [address], [place] * COTTON BUYER THIN PREP PAP SCREEN IMAGED [[id number]] (12/24/2017 2:15 PM CDT) Pathologist [facility] Case Report Gynecologic Cytology Report Case: [id number] Authorizing Provider: Pau Cruz DO Collected: 12/24/2017 1415 Ordering Location: [facility] Received: 12/24/2017 1444 Clinic First Screen: Leila Luke Specimen: COTTON BUYER ThinPrep Vial Screening, Cervical 12/31/2017 3:13 PM CDT [facility] INTERPRETATION/ RESULT NEGATIVE FOR INTRAEPITHELIAL LESION OR MALIGNANCY (NIL) (none) 12/31/2017 3:13 PM CDT [facility] at 1513 CDT SPECIMEN ADEQUACY Satisfactory for evaluation Endocervical component present 12/31/2017 3:13 PM CDT [facility] HPV REQUEST HPV if ASCUS 12/31/2017 3:13 PM CDT [facility] Date of LMP 12/10/2017 12/31/2017 3:13 PM CDT [facility] Last Pap Date unsure 12/31/2017 3:13 PM CDT [facility] Last Pap Result First Pap/Unknown 3:13 PM CDT [facility] Abnormal Pap or [place] Bx in last 5 years No 12/31/2017 3:13 PM CDT [facility] Menstrual Status Regular Periods 12/31/2017 3:13 PM CDT [facility] [place] Bx Done Today No 12/31/2017 3:13 PM CDT [facility] Additional Information None given 12/31/2017 3:13 PM CDT [facility] Automated Review Successful 12/31/2017 3:13 PM CDT [facility] Comment:Specimen processed s uccessfully by automated payroll director device, ThinPrep Imaging System, [employer] Note The pap test is a screening technique, not a diagnostic procedure. It is used primarily to screen for squamous cancers and precursor lesions. Published studies have shown that it is subject to both false negative and false positive results. The pap test should not be used as the sole means to diagnose or exclude pre-malignant and malignant lesions. Interpreted at [facility] ([facility], [facility], [facility], [facility], [facility], [facility], [facility]) 12/31/2017 3:13 PM CDT [facility] Other (Cervical) Non-Blood / Unknown 12/24/2017 2:15 PM CDT 12/24/2017 2:44 PM CDT us Pau Cruz DO PATHOLOGY/CYTOLOGY Final R esult [facility] [address] [place] [address], from Last 3 Months or Most Recently Relevant to Health Maintenance Insurance [facility] WORK[employer] COMP Advance Directives * Full Code (Latest Code Status on File) Date Activated Date Inactivated Comments 08/22/2014 10:56 AM 08/22/2014 7:25 PM
--- OUTSIDE RECORDS SUMMARY | 2025-01-14 09:48 | XMS_ITS | Encounter Summary ---
Author Organization [facility] Address [address] [place] [address] Care Team Providers Care Fabrics And Material Cutter Name Role Phone Tim Martin Primary Care Provider [phone] Encounter Details Date Type Department Care Team (Late st Contact Info) Description 03/04/2013 Correspondence [facility] [address] [place] [address] PROOF OF DELIVERY Social History Tobacco Use Types Packs/Day Years [...] as of this encounter Progress Notes * ADUCC, ADULT - 03/04/2013 12:00 AM CDT documented in this encounter Plan of Treatment Not on file documented as of this encounter Visit Diagnoses Not on filedocumented in this encounter Care Teams Fabrics And Material Cutter Relationship Specialty Start Date End Date Tim Martin [place] [address] [place] [address] PCP - General Family Practice 08/18/15 documented as of this encounter
--- OUTSIDE RECORDS SUMMARY | 2025-01-14 09:48 | XMS_ITS | Encounter Summary ---
Author Organization [facility] Address [address] [address] Care Team Providers Care Regional Business Manager Name Role Phone Tim Martin Primary Care Provider [phone] Encounter Details Date Type Department Care Team (Late st Contact Info) Description 01/07/2013 Correspondence [facility] [address] [place], [place] [address] Clifton Black MD PRIOR AUTH REQUEST Social History Tobacco Use Types Packs/Day Years [...] as of this encounter Progress Notes * Clifton Black MD - 01/07/2013 12:00 AM CDT documented in this encounter Plan of Treatment Not on file documented as of this encounter Visit Diagnoses Not on filedocumented in this encounter Care Teams Regional Business Manager Relationship Specialty Start Date End Date Tim Martin [place] [address] [place] [address] PCP - General Family Practice 08/18/15 documented as of this encounter
--- OUTSIDE RECORDS SUMMARY | 2025-01-14 09:49 | XMS_ITS | Encounter Summary ---
Author Organization [facility] Address [address] [place] [address] Care Team Providers Care Trimming Inspector Name Role Phone Tim Martin Primary Care Provider [phone] Encounter Details Date Type Department Care Team (Late st Contact Info) Description 04/21/2010 Scanned History External to Transferred Record, Provider KELLY GREEN Social History Tobacco Use Types Packs/Day Years Used Date Smoking Tobacco: Never Alcohol Use Standard Drinks/Week Comments Not Asked 0 (1 standard drink = 0.6 oz pur e alcohol) Comments No Sex and Gender Information Value Date Recorded Sex Assigned at Not on file Legal Sex Female 5:41 AM CDT Gender Identity Not on file Sexual Orientation Not on file documented as of this encounter Progress Notes * Transferred Record, Provider - 04/21/2010 12:00 AM CDT documented in this encounter Plan of Treatment Not on file documented as of this encounter Visit Diagnoses Not on filedocumented in this encounter Care Teams Trimming Inspector Relationship Specialty Start Date End Date Tim Martin MBBS [address] [place], [place] [address] PCP - General Family Practice 08/18/15 documented as of this encounter
--- OUTSIDE RECORDS SUMMARY | 2025-01-14 09:49 | XMS_ITS | Clinical Summary ---
Author Organization [facility] Address [address] [place] [address] Care Team Providers Care Auto Suspension And Steering Mechanic Name Role Phone Tim Martin Primary Care Provider [phone] Source Comments You are receiving this document as you are listed as the primary care provider,follow-up provider, or the patient has been referred to you for consultation.This is in compliance with the Medicare and[facility] EHR Incentive Program,which states Providers who transition their patient to another setting of careor provider of care or refers their patient to another provider of care shouldprovide summary care record for each transition of care or referral. [facility] Allergies No known active allergies Medications ZYRTEC OR Reported on 10/27/2016 Active hydrOXYzine HCl (ATARAX) 25 MG tabletIndication s:Generalized anxiety disorder (HRC) Take 0.5-1 Tabs by mouth three times a day as needed for Anxiety. 30 Tab 1 6 Active Additional Information Patient not taking.Reported on 10/27/2016 desogestrel-ethi nyl estradiol (VIORELE) 0.15-0.02/0.01 MG (25/02) tabletIndication s:Routine health maintenance Take 1 Tab by mouth daily. 84 Tab 8 Active Active Problems Problem Noted Date Diagnosed Date Screening for malignant neoplasm of cervix 10/20 Overview (05/30/2017): 2013 NILM 2017 NILM 21 y.o. Plan: Pap 10/2019 ; Pap test history Smoker 12/15/2013 ADD (attention deficit disorder) 01/02/2013 Asthma 10/26/2010 Overview (10/26/2010): On Advair 100/50 , zyrtec and albuterol Allergic rhinitis 10/26/2010 Overview (10/26/2010): On nasonex Generalized anxiety disorder 07/09/2010 Overview (10/11/2015): Used zoloft in the past, she needed to take it again after Resolved Problems Problem Noted Date Diagnosed Date Resolved Date GBS (group B Streptococcus c arrier), +RV culture, currently 07/21/2014 10/05/2014 Supervision of normal first 12/15/2013 10/05/2014 Immunizations Immunization Administration Dates Next Due 4vHPV (Gardasil) 10/31/2010,09/29/2008 1 DTaP 05/27/1997, 4,1993,1992,1993 Flu Vac Preserv Free (3+yrs) 10/16/2013 L9O2-Nyoipmgppm 09/14/2009 HepB Ped/Adol (0-18 yrs) 01/30/1994,1993,0 1993 IPV (Polio) 05/27/1997, 3,1993,1992 Influenza, Unspecified Formulation 09/29,08/28/2007,10/25/2006,2004,08/03/2004 MCV4 (Menactra) 12/21/2005,12/20/2005 MMR 02/25/1998,05/25/1994 OPV, Trivalent (Orimune or tOPV) 997,1993,1993,1992 Td 05/03/2004 Tdap 05/29/2014,10/31/2010 Varicella 05/27/1997 Family History Medical History Relation Name Comments Hyperlipidemia Father Hypertension Mother Bipolar Disorder Brother 2 Diabetes, Type II Maternal Grandfather Bipolar Disorder Maternal Grandmother Hyperlipidemia Other 1 pat uncle -CA D Other Other 2 maternal Uncle, several cousins Alzheimer's Other 3 grandparents Bipolar Disorder Sister 2 Depression Sister 3 MGM has multipl e mood disorders Cancer, Breast Negative Family History Cancer, Colon Negative Family History Cancer, Ovary Negative Family History Relation Name Status Comments Father Alive Mother Alive Brother 1 Alive Brother 2 Daughter Alive Maternal Grandfather Alive Maternal Grandmother Alive Other 1 Other 2 Other 3 Paternal Grandfather (Age 40) ch em poisoning Paternal Grandmother Alive Sister 1 Alive Sister 2 Sister 3 Social History Tobacco Use Types Packs/Day Years Used Date Smoking Tobacco: Former Cigarettes 0 06/08/2011 - 06/08/2014 Smokeless Tobacco: Never Chew Comments:using E cig. Alcohol Use Standard Drinks/Week Comments Yes 4 (1 standard drink = 0.6 oz pur [...] file Not on file Not on file Last Filed Vital Signs Vital Sign Reading Time Taken Comments Blood Pressure 107/79 10/27/2016 10:43 AM SCREEN PRINTING SUPERVISOR Pulse 92 10/27/2016 10:43 AM SCREEN PRINTING SUPERVISOR Temperature 37.1 C (98.7 F) 03/15/2015 2:43 PM CDT Respiratory Rate - - Oxygen Saturation 97% 01/14/2015 12:19 PM CDT Inhaled Oxygen Concentration - - Weight 51.3 kg (113 lb 2 oz) 10/27/2016 10:43 AM SCREEN PRINTING SUPERVISOR Height 162.6 cm (5' 4) 10/27/2016 10:43 AM SCREEN PRINTING SUPERVISOR Body Mass Index 19.42 10/27/2016 10:43 AM SCREEN PRINTING SUPERVISOR Plan of Treatment Health Maintenance Due Date Last Done Comments Hep C Screening (Preventive Services) 1993 HPV Vaccine (3 - 3-dose series) 01/23/2011 10/31/2010, 09/29/2008 Asthma ACT (score of 20 or higher) 07/05/2017 07/05/2016 Adult Preventive Visit 10/27/2018 7, 10/11/2015, 10/16/2013, Additional history exists Cervical Cancer Screening 10/27/2019 10/27/2016, DTaP/Tdap/Td (8 - Tdap) 05/29/2024 05/29/20 14, 10/31/2010, 05/03/2004, Additional history exists COVID-19 Vaccine ( season) 2024 Influenza (#1) 2024 10/16/2013, 09/08, 08/28/2007, Additional history exists Zoster/Shingles (1 of 2) 2043 HepB Completed 01/30/1994, 06/09, 1993 IPV (Polio) Completed 05/27/1997, 05/09, 1993, Additional history exists MCV4 Aged Out 12/21/2005, 12/20/2005 No lo nger eligible based on patient's age to complete this topic HIV Screening (Preventive Services) Completed 12/11/2013 HepA Aged Out No longer eligi ble based on patient's age to complete this topic Hib Aged Out No longer eligi ble based on patient's age to complete this topic Meningococcal B Aged Out No longer el igible based on patient's age to complete this topic Pneumococcal Aged Out No longer eligi ble based on patient's age to complete this topic Procedures Procedure Name Priority Date/Time Associated Diagnosis Comments PAP TEST, ROUTINE Routine 10/27/2016 12: 18 PM SCREEN PRINTING SUPERVISOR Routine health maintenance Screening for cervical cancer HIV ANTIBODY Routine 12/11/2013 4:21 PM SCREEN PRINTING SUPERVISOR Supervision of normal first , first trimester from Last 3 Months or Most Recently Relevant to Health Maintenance Results * Pap Test, Routine (10/27/2016 12:18 PM SCREEN PRINTING SUPERVISOR) Cytology, Pap (NOTE) Tube Winder Cytology Report Patient Name: ALVIN TOBIAS Taken: 10/27/2016 Received: 10/27/2016 Reported: 11/03/2016 Physician(s): VIVIANA MATAMOROS Source of Specimen Pap Test, Routine Cervical/Endocervi dolly: Specimen Adequacy Satisfactory for evaluation. Endocervical component present. Final Cytologic Interpretation/Res ult NEGATIVE FOR INTRAEPITHELIAL LESION OR MALIGNANCY (NILM) *Electronically Signed Out By MITCHELL Kirkland (ASCP)* MITCHELL Kirkland (ASCP) Pap Smear History Date of Last Menstrual Period: 10/04/2016 Microscopic Description Microscopic examination is performed. [facility] Department of Pathology [address] [place] [id number] [facility] [employer] 10/27/2016 12:1 8 PM SCREEN PRINTING SUPERVISOR 10/27/2016 6:33 PM SCREEN PRINTING SUPERVISOR us Viviana Matamoros MD LAB_1 Final Resul t Performing Organization Address City/[facility] Co de Phone Number [facility] [employer] [phone] * HIV ANTIBODY (12/11/2013 4:21 PM SCREEN PRINTING SUPERVISOR) HIV 1/2 Antibody Negative (Non Reactive) [facility]GNR [facility] Comment: HIV Antibody testing may be falsely negative during the window period. If the patient has had recent exposure (within the past four weeks), consider contacting Infectious Diseases for clarification. 12/11/2013 4:21 PM SCREEN PRINTING SUPERVISOR 12/11/2013 4:24 PM SCREEN PRINTING SUPERVISOR Narrative [facility] - 12/12/2013 3:34 PM SCREEN PRINTING SUPERVISOR Performed at [facility], [address] [address] us Barbie Steinberg PALEONTOLOGY TEACHER, ASSOCIATE PROFESSOR OF CRIMINAL JUSTICE LAB_1 Fin al Result Performing Organization Address City/[facility]/ZIP Co de Phone Number [facility] [phone] from Last 3 Months or Most Recently Relevant to Health Maintenance Insurance BCBS OUT OF STATE Care Teams Auto Suspension And Steering Mechanic Relationship Specialty Start Date End Date Tim Martin MBBS [address] [place] [address] PCP - General Family Practice 08/18/15
--- OUTSIDE RECORDS SUMMARY | 2025-01-14 09:49 | XMS_ITS | Encounter Summary ---
Author Organization [employer] Address [address], [place] [address] Care Team Providers Care Director Of Manufacturing Name Role Phone Tim Martin Primary Care Provider [phone] Encounter Details Date Type Department Care Team (Late st Contact Info) Description 01/02/2013 Correspondence [facility] [address] [place], [place] [address] Clifton Black MD PRIOR AUTH REQUEST FORM Social History Tobacco Use Types Packs/Day Years [...] Progress Notes * Clifton Black MD - 01/02/2013 12:00 AM CDT documented in this encounter Plan of Treatment Not on file documented as of this encounter Visit Diagnoses Not on filedocumented in this encounter Care Teams Director Of Manufacturing Relationship Specialty Start Date End Date Tim Martin [place] [address] [place] [address] PCP - General Family Practice 08/18/15 documented as of this encounter
[2025-01-14 09:53] VITALS: BP 114/84; PULSE 95; RESP 18; TEMP 37; O2SAT 97; BMI 22.9
--- NOTE | 2025-01-14 10:28 | CRLHL7_ITS ---
For Patients: As a result of the Cures Act, medical imaging exams and procedure reports are released immediately into your electronic medical record. You may view this report before your referring provider. If you have questions, please contact your health care provider. INDICATION: Second toe pain. TECHNIQUE: Right foot three views. COMPARISON: None. FINDINGS: No acute fracture or dislocation. No additional osseous abnormality. Soft tissues as imaged are unremarkable. IMPRESSION: No acute osseous abnormality. Dictated by Telly Briones MD @ 01/14/2025 11:55:32 AM (Electronically Signed)
--- OUTSIDE RECORDS SUMMARY | 2025-01-14 10:39 | XMS_ITS | Encounter Summary ---
Author Organization [employer] Address [address] [place] [address] Care Team Providers Care Quarter Lining Smoother Name Role Phone Tim Martin Primary Care Provider [phone] Encounter Details Date Type Department Care Team (Late st Contact Info) Description 06/26/2014 Correspondence None No Primary/Referring, Phy HME EQUIPMENT CARD DEALER TICKET Social History Tobacco Use Types Packs/Day [...] on filedocumented in this encounter Care Teams Quarter Lining Smoother Relationship Specialty Start Date End Date Tim Martin MBBS [address] [place], [place] [address] PCP - General Family Practice 08/18/15 documented as of this encounter
--- OUTSIDE RECORDS SUMMARY | 2025-01-14 10:39 | XMS_ITS | Encounter Summary ---
Author Organization [employer] Address [address] [place] [address] Care Team Providers Care Cam Maker Name Role Phone Tim Martin Primary Care Provider [phone] Encounter Details Date Type Department Care Team [...] on filedocumented in this encounter Care Teams Cam Maker Relationship Specialty Start Date End Date Tim Martin MBBS [address] [place] [address] PCP - General Family Practice 08/18/15 documented as of this encounter
--- OUTSIDE RECORDS SUMMARY | 2025-01-14 10:40 | XMS_ITS | Encounter Summary ---
Author Organization [facility] Address [address] [place] [address] Care Team Providers Care Counter Sales Person Name Role Phone Tim Martin Primary Care Provider [phone] Encounter Details Date Type Department Care Team (Late st Contact Info) Description 03/04/2013 Correspondence [facility] [address] [place] [address] PROOF OF DELIVERY Social History [...] on filedocumented in this encounter Care Teams Counter Sales Person Relationship Specialty Start Date End Date Tim Martin [place] [address] [place] [address] PCP - General Family Practice 08/18/15 documented as of this encounter
--- OUTSIDE RECORDS SUMMARY | 2025-01-14 10:40 | XMS_ITS | Encounter Summary ---
Author Organization [facility] Address [address] [address] Care Team Providers Care Hem Inspector Name Role Phone Tim Martin Primary Care Provider [phone] Encounter Details Date Type Department Care Team ([facility] st Contact Info) Description 02/04/2013 Correspondence External to [facility] External, [place] [address] IMMUNIZATION RECORD Social History Tobacco Use Types [...] on filedocumented in this encounter Care Teams Hem Inspector Relationship Specialty Start Date End Date Tim Martin MBBS [address], [place] [address] PCP - General Family Practice 08/18/15 documented as of this encounter
--- OUTSIDE RECORDS SUMMARY | 2025-01-14 10:40 | XMS_ITS | Encounter Summary ---
Author Organization [facility] Address [address], [place] [address] Care Team Providers Care Biochemist Name Role Phone Tim Martin Primary Care Provider [phone] Encounter Details Date Type Department Care Team (Late st Contact Info) Description 01/02/2013 Correspondence [facility] [address] [place], [place] [address] Clifton Black MD PRIOR AUTH REQUEST FORM [...] on filedocumented in this encounter Care Teams Biochemist Relationship Specialty Start Date End Date Tim Martin [place] [address] [place] [address] PCP - General Family Practice 08/18/15 documented as of this encounter
--- OUTSIDE RECORDS SUMMARY | 2025-01-14 10:40 | XMS_ITS | Encounter Summary ---
Author Organization [facility] Address [address] [place] [address] Care Team Providers Care Software Administrator Name Role Phone Tim Martin Primary Care Provider [phone] Encounter Details Date Type Department Care Team [...] on filedocumented in this encounter Care Teams Software Administrator Relationship Specialty Start Date End Date Tim Martin MBBS [address] [place], [place] [address] PCP - General Family Practice 08/18/15 documented as of this encounter
--- OUTSIDE RECORDS SUMMARY | 2025-01-14 10:40 | XMS_ITS | Encounter Summary ---
Author Organization [facility] Address [address] [address] Care Team Providers Care Supply Chain Analyst Name Role Phone Tim Martin Primary Care Provider [phone] Encounter Details Date Type Department Care Team (Late st Contact Info) Description 01/07/2013 Correspondence [facility] [address] [place], [place] [address] Clifton Black MD PRIOR AUTH REQUEST Social [...] on filedocumented in this encounter Care Teams Supply Chain Analyst Relationship Specialty Start Date End Date Tim Martin [place]BS [address] [place] [address] PCP - General Family Practice 08/18/15 documented as of this encounter
--- OUTSIDE RECORDS SUMMARY | 2025-01-14 10:40 | XMS_ITS | Clinical Summary ---
Author Organization [facility] Address [address] [place] [address] Care Team Providers Care Security Program Manager Name Role Phone Tim Martin Primary Care Provider [phone] Source Comments You are receiving this document as you are listed as the primary care provider,follow-up provider, or the patient has been referred to you for consultation.This is in compliance with the Medicare and[facility] EHR Incentive Program,which states Providers who transition their patient to another setting of careor provider of care or refers their patient to another provider of care shouldprovide summary care record for each transition of care or referral. [facility] Allergies No known active allergies Medications ZYRTEC [...] 4,1993,1992,1993 Flu Vac Preserv Free (3+yrs) 10/16/2013 [id number] 09/14/2009 HepB Ped/Adol (0-18 yrs) 01/30/1994,1993,0 1993 [...] Comments Blood Pressure 107/79 10/27/2016 10:43 AM PLASTERER STUCCO Pulse 92 10/27/2016 10:43 AM PLASTERER STUCCO Temperature 37.1 C (98.7 F) 03/15/2015 2:43 PM CDT Respiratory Rate - - Oxygen Saturation 97% 01/14/2015 12:19 PM CDT Inhaled Oxygen Concentration - - Weight 51.3 kg (113 lb 2 oz) 10/27/2016 10:43 AM PLASTERER STUCCO Height 162.6 cm (5' 4) 10/27/2016 10:43 AM PLASTERER STUCCO Body Mass Index 19.42 10/27/2016 10:43 AM PLASTERER STUCCO Plan of Treatment Health Maintenance Due Date [...] TEST, ROUTINE Routine 10/27/2016 12: 18 PM PLASTERER STUCCO Routine health maintenance Screening for cervical cancer HIV ANTIBODY Routine 12/11/2013 4:21 PM PLASTERER STUCCO Supervision of normal first , first trimester from Last 3 Months or Most Recently Relevant to Health Maintenance Results * Pap Test, Routine (10/27/2016 12:18 PM PLASTERER STUCCO) Cytology, Pap (NOTE) Technology Support Analyst Cytology Report Patient Name: ALVIN TOBIAS Taken: [...] 10/04/2016 Microscopic Description Microscopic examination is performed. [facility] Department of Pathology [address] [place] [address] [facility] [employer] 10/27/2016 12:1 8 PM PLASTERER STUCCO 10/27/2016 6:33 PM PLASTERER STUCCO us Viviana Matamoros MD LAB_1 Final Resul t Performing Organization Address City/[facility] Co de Phone Number [facility] [employer] [phone] * HIV ANTIBODY (12/11/2013 4:21 PM PLASTERER STUCCO) HIV 1/2 Antibody Negative (Non Reactive) NEGNR [facility] Comment: HIV Antibody testing may be falsely negative during the window period. If the patient has had recent exposure (within the past four weeks), consider contacting Infectious Diseases for clarification. 12/11/2013 4:21 PM PLASTERER STUCCO 12/11/2013 4:24 PM PLASTERER STUCCO Narrative [facility] - 12/12/2013 3:34 PM PLASTERER STUCCO Performed at [facility], [address] [address] us Barbie Steinberg GRASSROOTS ORGANIZER, LEATHER SKINNER LAB_1 Fin al Result Performing Organization Address City/[facility]/ZIP Co de Phone Number [facility] [phone] from Last 3 Months or Most Recently Relevant to Health Maintenance Insurance BCBS OUT OF STATE Care Teams Security Program Manager Relationship Specialty Start Date End Date Tim Martin [place]BS [address] [place] [address] PCP - General Family Practice 08/18/15
--- NOTE | 2025-01-14 10:55 | ED_ITS ---
HPI - General Adult General Chief complaint: Alcohol/Intoxication Stated complaint: alcohol withdrawal Time Seen by Provider: 01/14/25 09:49 History of Present Illness HPI narrative: 29-year-old female who has been battling chronic alcoholism, presents with some withdrawal symptoms. She last drank this morning at about 7:00 a.m., she has been on remote off binge drinking. Family is wishing her to get inpatient treatment. She has not a complaint of right 2nd toe pain. She thinks she injured it yesterday. She has no other specific complaints other than feeling ?shaky?. The patient has had never had severe alcohol withdrawal where she has been hospitalized, had alcoholic withdrawal seizure or been intubated. Patient would like to seek some type of help as well. She has no chest pain, breathing problem, trauma other than the 2nd toe is painful to her on the right foot . Related Data Home Medications ?Medication ?Instructions ?Recorded ?Confirmed hydroxyzine HCl 25 mg tablet 25 mg PO QPM PRN anxiety 02/03/24 01/14/25 sertraline 50 mg tablet 50 mg PO DAILY 02/03/24 01/14/25 Previous Rx's ?Medication ?Instructions ?Recorded lorazepam 0.5 mg tablet (Ativan) 0.5 mg PO TID PRN #10 tabs 01/14/25 Allergies Allergy/AdvReac Type Severity Reaction Status Date / Time No Known Drug Allergies Allergy Verified 01/14/25 10:06 Review of Systems Status of ROS: Reports: 6 or more systems reviewed and unremarkable except as noted in History and below [facility] Social History Smoking Status: Current every day smoker Do you use any of these nicotine containing products: Vaping Products Second hand tobacco smoke exposure: No How often do you have a drink containing alcohol: 4 or more times a week How often do you have six or more drinks on one occasion: Daily or almost daily AUDIT-C Alcohol total score: 8 Non-prescribed substance use: denies use Exam Narrative: Exam Narrative: Objective: The patient's vital signs are within normal limits She is alert orient x3 tearful Does not appear intoxicated Does not appear tremulous Neurologic is grossly nonfocal Mental status patient describes being sad somewhat depressed from her drinking and stressed, she denies suicidal intention or plan. Patient has been on sertraline for depression. Const: Vital Signs, click to edit/add: Vital Signs - 24 hr 01/14/25 09:53 Temperature 98.6 F Pulse Rate [Pulse Oximeter] 95 Respiratory Rate 18 Blood Pressure [Ri ght Upper Arm] 114/84 Pulse Oximetry 97 Oxygen Delivery Me thod Room Air Course Vital Signs Vital signs: Initial Vital Signs Temperature 98.6 F 01/14/25 09:53 Temperature Source Temporal Artery Scan 01/14/25 09:53 Pulse Rate 95 01/14/25 09:53 Respiratory Rate 18 01/14/25 09:53 Blood Pressure 114/84 01/14/25 09:53 Blood Pressure Mean 94 01/14/25 09:53 Blood Pressure Position Sitting 01/14/25 09:53 Pulse Oximetry 97 01/14/25 09:53 Oxygen Delivery Method Room Air 01/14/25 09:53 Vital Signs Temperature 98.6 F 01/14/25 09:53 Pulse Rate 95 01/14/25 09:53 Respiratory Rate 18 01/14/25 09:53 Blood Pressure 114/84 01/14/25 09:53 Pulse Oximetry 97 01/14/25 09:53 Oxygen Delivery Method Room Air 01/14/25 09:53 Temperature 98.6 F 01/14/25 09:53 Pulse Rate 95 01/14/25 09:53 Respiratory Rate 18 01/14/25 09:53 Blood Pressure 114/84 01/14/25 09:53 Pulse Oximetry 97 01/14/25 09:53 Oxygen Delivery Method Room Air 01/14/25 09:53 Medications Administered Medications: Discontinued Medications Generic Name Dose Route Start Last Admin Trade Name Joaquinq PRN Reason Stop Dose Admin Sodium Chloride 1,000 mls @ 6,000 mls/hr 01/14/25 10:45 01/14/25 11:40 0.9 % Sodium Chloride 1000 Ml IV 01/14/25 10:54 Infused .Q10M KEVIN Infusion Lorazepam 1 mg 01/14/25 10:32 01/14/25 11:07 Lorazepam 2 Mg/Ml Inj IVP 01/14/25 10:33 1 mg ONCE ONE Administration Medical Decision Making MDM Narrative Medical decision making narrative: 28-year-old white female with alcoholism, patient is requesting treatment. I had social service meet with her and explained rule 25 assessment. Patient and her friend both understood that we can not make direct referral to inpatient treatment care centers. The patient does not appear intoxicated will check her alcohol level, I do not think detox is appropriate setting either at this point. It does seem that some IV fluid lab studies some IV Ativan would be appropriate to help her with her anxiety issues. Will send some Ativan home with her on a few doses. She can call the resources given by social service to get a Rule 25 done, including local resource xochitl Wu. Addendum 11:42 a.m. thank you: The patient has reassuring blood work, negative test. She feels better. She has got information social Service heart access inpatient assessment through very [facility] service agencies. She agrees to follow up with that. Alcohol level is 0.02. Would recommend Ativan p.r.n. over the next couple of days just to help her anxiety, and she could also return as needed. Lab Data Labs: Lab Results 01/14/25 01/14/25 Range/Units 10:39 11:06 WBC 8.54 (4.50-11.00) K/uL RBC 4.32 (4.00-5.20) m/uL Hgb 13.2 (12.0-16.0) gm/dL Hct 39.4 (33.0-51.0) % MCV 91 (80-100) fL MCH 31 (26-34) pg MCHC 34 (32-36) gm/dL RDW Coeff of Jennifer 13.2 (11.5-15.5) % Plt Count 246 (140-440) K/uL Neut % (Auto) 64.1 (42.0-72.0) % Lymph % (Auto) 31.0 (20-44) % Early % (Auto) 3.7 (0.0-11.0) % Eos % (Auto) 0.6 (0.0-7.0) % Baso % (Auto) 0.5 (0.0-3.0) % Neut # (Auto) 5.47 (1.7-7.0) K/uL Lymph # (Auto) 2.65 (0.90-2.90) K/uL Early # (Auto) 0.30 (0.00-0.90) K/UL Eos # (Auto) 0.05 (0.00-0.50) K/uL Baso # (Auto) 0.04 (0.00-0.30) K/uL Abs Immat Gran (auto) 0.01 (0.00-0.30) K/uL Imm/Tot Granulo (auto) 0.1 % Diff Slide Review Acceptable Review (Acceptable) Sodium 138 (135-149) mmol/L Potassium 3.7 (3.6-5.1) mmol/L Chloride 102 (96-114) mmol/L Carbon Dioxide 26 (20-32) mmol/L Anion Gap 10 (7-15) mEq/L BUN 10 (5-24) mg/dL Creatinine 0.6 (0.5-1.5) mg/dL Estimated Creat Clear 122.25 Estimated GFR 123 ml/min Glucose 83 (60-115) mg/dL Calcium 8.7 (8.4-10.6) mg/dL HCG, Qual Negative (Negative) Ethyl Alcohol 0.02 (0.01-0.03) % Discharge Plan Discharge Clinical Impression: Alcoholism, chronic Patient Disposition: Home w/ Parent or Adult Condition: Improved Additional Instructions: Call the social service resources given to you, you need a Rule 25 done for inpatient care. You can take the anxiety medicine a couple times a day for the next couple of days. Avoid alcohol. Return if problems or concerns. Activity Level: Light activity Discharge Diet: Regular Prescriptions: New lorazepam [Ativan] 0.5 mg tablet 0.5 mg PO TID PRNQty: 10 0RF No Action hydroxyzine HCl 25 mg tablet 25 mg PO QPM PRN (Reason: anxiety) sertraline 50 mg tablet 50 mg PO DAILY Follow Up/Referrals: Provider,Not a Local [Primary Care Provider] - Stand Alone Forms: [employer]th Info Instructions
[2025-01-14 11:04] LABS: Basophils Absolute Auto 0.04 K/uL (0.00-0.30); Basophils Percent Auto 0.5 % (0.0-3.0); Eosinophils Absolute Auto 0.05 K/uL (0.00-0.50); Eosinophils Percent Auto 0.6 % (0.0-7.0); Hematocrit 39.4 % (33.0-51.0); Hemoglobin* 13.2 gm/dL (12.0-16.0); Immature Granulocytes Abs Auto 0.01 K/uL (0.00-0.30); Immature Granulocytes Pct Auto 0.1 %; Lymphocytes Absolute Auto 2.65 K/uL (0.90-2.90); Mean Corpuscular HGB Conc 34 gm/dL (32-36); Mean Corpuscular Hemoglobin 31 pg (26-34); Mean Corpuscular Volume 91 fL (80-100); Monocytes Percent Auto 3.7 % (0.0-11.0); Neutrophils Absolute Auto 5.47 K/uL (1.7-7.0); Neutrophils Percent Auto 64.1 % (42.0-72.0); Platelet Count* 246 K/uL (140-440); RDW Coefficient of Variation % 13.2 % (11.5-15.5); Red Blood Count 4.32 m/uL (4.00-5.20); White Blood Count* 8.54 K/uL (4.50-11.00)
[2025-01-14] MEDS: 0.9 % SODIUM CHLORIDE 1000 ml 1,000 ML 6000 ML IV (11:06)
[2025-01-14] MEDS: LORazepam 2 MG/ML inj 1 MG IVP (11:07)
--- NOTE | 2025-01-14 11:13 | PC.SOCIAL ---
Discharge planning: Met with pt regarding d/c plan. Pt admits to using alcohol and a desire to stop using. Pt states he wants to go to a substance treatment program because her thinks she needs to do that. Pt states she has not been through a program before but did stop drinking after a detox stay. Pt states she is interested in [facility]-pt [facility] but has not yet contacted them. Provided pt with written resource list of in-pt and out-pt programs and 30/04 hotline phone numbers. Explained to pt that she can contact [facility] directly and find out what their admission process is and request to start this process. Pt confirmed she has not yet had a Rule 25 completed which is needed for insurance to authorize coverage for treatment. Shared that many treatment programs have a staff person who is able to complete the Rule 25 assessment and suggested she discuss this with [facility]. Also provided pt with a list of agencies locally who are able to complete the Rule 25 assessment if the in-pt program she is interested in does not offer this. Pt expressed understanding of this process and the steps she needs to take to ge into a substance treatment program. Pt is aware she could be evaluated for detox placement from this ED visit and stated she is currently not interested in detox placement.
[2025-01-14 11:16] LABS: Chloride* 102 mmol/L (96-114); Potassium* 3.7 mmol/L (3.6-5.1); Sodium* 138 mmol/L (135-149)
[2025-01-14 11:19] LABS: Anion Gap 10 mEq/L (7-15); Blood Urea Nitrogen* 10 mg/dL (5-24); Calcium* 8.7 mg/dL (8.4-10.6); Carbon Dioxide* 26 mmol/L (20-32); Creatinine* 0.6 mg/dL (0.5-1.5); Est. Creatinine Clearance* 122.25; Estimated Glomerular Filt Rate 123 ml/min; Glucose* 83 mg/dL (60-115)
[2025-01-14 11:20] LABS: Ethanol* 0.02 % (0.01-0.03)
[2025-01-14 11:30] LABS: HCG Qualitative Serum* Negative (Negative)
[2025-01-14 11:32] LABS: Slide Review Acceptable Review (Acceptable); Slide Review Reflex Yes
== END 2025-01-14 12:01 | disposition home or self-care (01) ==
PROVIDERS: Emergency Provider Family Medicine
DX: F10.20 Alcohol dependence, uncomplicated (principal)
CPT/HCPCS: 36415; 73630; 80048; 81025; 82077; 84703; 85025; 96374; 99284; J2060; J7030

== ENCOUNTER 2025-01-15 20:49 | Emergency (ER) | payer BC, SELFPAY ==
--- OUTSIDE RECORDS SUMMARY | 2025-01-15 20:52 | XMS_ITS | Clinical Summary ---
[facility] Organization [facility] Address [address] [place] [address] Care Team Providers Care Hand Slitter Name Role Phone Tim Martin Primary Care Provider [phone] Source Comments You are receiving this document as you are listed as the primary care provider,follow-up provider, or the patient has been referred to you for consultation.This is in compliance with the Medicare and[facility] EHR Incentive Program,which states Providers who transition their patient to another setting of careor provider of care or refers their patient to another provider of care shouldprovide summary care record for each transition of care or referral. [facility] Allergies No known active allergies Medications [...] 4,1993,1992,1993 Flu Vac Preserv Free (3+yrs) 10/16/2013 [id number] 09/14/2009 HepB Ped/Adol (0-18 yrs) 01/30/1994,1993,0 1993 [...] Comments Blood Pressure 107/79 10/27/2016 10:43 AM HEALTH INFORMATION TECHNICIAN Pulse 92 10/27/2016 10:43 AM HEALTH INFORMATION TECHNICIAN Temperature 37.1 C (98.7 F) 03/15/2015 2:43 PM CDT Respiratory Rate - - Oxygen Saturation 97% 01/14/2015 12:19 PM CDT Inhaled Oxygen Concentration - - Weight 51.3 kg (113 lb 2 oz) 10/27/2016 10:43 AM HEALTH INFORMATION TECHNICIAN Height 162.6 cm (5' 4) 10/27/2016 10:43 AM HEALTH INFORMATION TECHNICIAN Body Mass Index 19.42 10/27/2016 10:43 AM HEALTH INFORMATION TECHNICIAN Plan of Treatment Health Maintenance Due Date [...] TEST, ROUTINE Routine 10/27/2016 12: 18 PM HEALTH INFORMATION TECHNICIAN Routine health maintenance Screening for cervical cancer HIV ANTIBODY Routine 12/11/2013 4:21 PM HEALTH INFORMATION TECHNICIAN Supervision of normal first , first trimester from Last 3 Months or Most Recently Relevant to Health Maintenance Results * Pap Test, Routine (10/27/2016 12:18 PM HEALTH INFORMATION TECHNICIAN) Cytology, Pap (NOTE) Greaser Operator Cytology Report Patient Name: ALVIN TOBIAS Taken: [...] 10/04/2016 Microscopic Description Microscopic examination is performed. [facility] Department of Pathology [address] [place] [address] [facility] [employer] 10/27/2016 12:1 8 PM HEALTH INFORMATION TECHNICIAN 10/27/2016 6:33 PM HEALTH INFORMATION TECHNICIAN us Viviana Matamoros MD LAB_1 Final Resul t Performing Organization Address City/[facility] Co de Phone Number [facility] [employer] [phone] * HIV ANTIBODY (12/11/2013 4:21 PM HEALTH INFORMATION TECHNICIAN) HIV 1/2 Antibody Negative (Non Reactive) NEGNR [facility] Comment: HIV Antibody testing may be falsely negative during the window period. If the patient has had recent exposure (within the past four weeks), consider contacting Infectious Diseases for clarification. 12/11/2013 4:21 PM HEALTH INFORMATION TECHNICIAN 12/11/2013 4:24 PM HEALTH INFORMATION TECHNICIAN Narrative [facility] - 12/12/2013 3:34 PM HEALTH INFORMATION TECHNICIAN Performed at [facility], [address] [address] us Barbie Steinberg ANY COMMODITY SALES DELIVERER, ASSISTED LIVING ADMINISTRATOR LAB_1 Fin al Result Performing Organization Address City/[facility]/ZIP Co de Phone Number [facility] [phone] from Last 3 Months or Most Recently Relevant to Health Maintenance Insurance BCBS OUT OF STATE Care Teams Hand Slitter Relationship Specialty Start Date End Date Tim Martin MBBS [address] [place] [address] PCP - General Family Practice 08/18/15
--- OUTSIDE RECORDS SUMMARY | 2025-01-15 20:52 | XMS_ITS | Encounter Summary ---
Author Organization [facility] Address [address] [place] [address] Care Team Providers Care 3D Artist Name Role Phone Tim Martin Primary Care Provider [phone] Encounter Details Date Type Department Care Team [...] on filedocumented in this encounter Care Teams 3D Artist Relationship Specialty Start Date End Date Tim Martin MBBS [address] [place], [place] [address] PCP - General Family Practice 08/18/15 documented as of this encounter
--- OUTSIDE RECORDS SUMMARY | 2025-01-15 20:52 | XMS_ITS | Encounter Summary ---
Author Organization [facility] Address [address] [address] Care Team Providers Care Utility Bagger Name Role Phone Tim Martin Primary Care Provider [phone] Encounter Details Date Type Department Care Team (Late st Contact Info) Description 01/07/2013 Correspondence [facility] [address] [place], [place] [address] Clifton Black MD PRIOR AUTH REQUEST Social [...] on filedocumented in this encounter Care Teams Utility Bagger Relationship Specialty Start Date End Date Tim Martin [place] [address] [place] [address] PCP - General Family Practice 08/18/15 documented as of this encounter
--- OUTSIDE RECORDS SUMMARY | 2025-01-15 20:52 | XMS_ITS | Clinical Summary ---
Author Organization [employer] [facility] Address [address] [place] [address] Care Team Providers Care Care Information Associate Name Role Phone Unavailable Primary Care Provider [...] on file Legal Sex Female 6:48 AM CLINICAL RESEARCH ASSISTANT Gender Identity Not on file Sexual Orientation [...] ANTI HIV 1/2 Routine 12/02/2018 12:16 PM CLINICAL RESEARCH ASSISTANT Encounter for supervision of normal first in first trimester (HC) ANTI HCV Routine 12/02/2018 12:16 PM CLINICAL RESEARCH ASSISTANT Encounter for supervision of normal first in first trimester (HC) BOWL TOPPER THIN PREP PAP SCREEN IMAGED Routine 12/24/2017 2:15 PM CDT Screening for malignant neoplasm of cervix from Last 3 Months or Most Recently Relevant to Health Maintenance Results * ANTI HCV (12/02/2018 12:16 PM CLINICAL RESEARCH ASSISTANT) HEPATITIS C ANTIBODY Non-React jaylin Non-React jaylin 12/02/2018 4:53 PM CLINICAL RESEARCH ASSISTANT [facility] Comment:Antibodies to HCV no t detected; does not exclude the possibility of exposure to HCV. Blood BLOOD SPECIMEN / Unknown Venipuncture / Unknown 12/02/2018 12:16 PM CLINICAL RESEARCH ASSISTANT 12/02/2018 12:16 PM CLINICAL RESEARCH ASSISTANT Keely MURILLO SEND OUTS Final R esult Performing Organization Address City/[facility]/ZIP Co de Phone Number [facility] [address] [place] [address], * ANTI HIV 1/2 (12/02/2018 12:16 PM CLINICAL RESEARCH ASSISTANT) Pathologist [facility] HIV-1/HIV-2 ANTIBODY Non-Reacti ve Non-Reacti ve 12/02/2018 4:54 PM CLINICAL RESEARCH ASSISTANT [facility] Comment:HIV-1 p24 and HIV-1/ HIV-2 Ab not detected. Blood BLOOD SPECIMEN / Unknown Venipuncture / Unknown 12/02/2018 12:16 PM CLINICAL RESEARCH ASSISTANT 12/02/2018 12:16 PM CLINICAL RESEARCH ASSISTANT Keely MURILLO SEND OUTS Final R esult Performing Organization Address City/[facility]/ZIP Co de Phone Number [facility] [address] [place] [address], [place] * BOWL TOPPER THIN PREP PAP SCREEN IMAGED [[id number]] (12/24/2017 2:15 PM CDT) Pathologist [facility] Case Report Gynecologic Cytology Report Case: [id number] Authorizing Provider: Pau Cruz DO Collected: 12/24/2017 1415 Ordering Location: [facility] Received: 12/24/2017 1444 Clinic First Screen: Leila Luke Specimen: BOWL TOPPER ThinPrep Vial Screening, Cervical 12/31/2017 3:13 PM CDT [facility] INTERPRETATION/ RESULT NEGATIVE FOR INTRAEPITHELIAL LESION OR MALIGNANCY (NIL) (none) 12/31/2017 3:13 PM CDT [facility] at 1513 CDT SPECIMEN ADEQUACY Satisfactory for evaluation Endocervical component present 12/31/2017 3:13 PM CDT [facility] HPV REQUEST HPV if ASCUS 12/31/2017 3:13 PM CDT [facility] Date of LMP 12/10/2017 12/31/2017 3:13 PM CDT [facility] Last Pap Date unsure 12/31/2017 3:13 PM CDT [facility] Last Pap Result First Pap/Unknown 3:13 PM CDT [facility] Abnormal Pap or [place] Bx in last 5 years No 12/31/2017 3:13 PM CDT [facility] Menstrual Status Regular Periods 12/31/2017 3:13 PM CDT [facility] [place] Bx Done Today No 12/31/2017 3:13 PM CDT [facility] Additional Information None given 12/31/2017 3:13 PM CDT [facility] Automated Review Successful 12/31/2017 3:13 PM CDT [facility] Comment:Specimen processed s uccessfully by automated flag football coach device, ThinPrep Imaging System, [employer] Note The pap test is a screening technique, not a diagnostic procedure. It is used primarily to screen for squamous cancers and precursor lesions. Published studies have shown that it is subject to both false negative and false positive results. The pap test should not be used as the sole means to diagnose or exclude pre-malignant and malignant lesions. Interpreted at [facility] (Central Lab, [facility], [facility], [facility], [facility], [facility], [facility]) 12/31/2017 3:13 PM CDT [facility] Other (Cervical) Non-Blood / Unknown 12/24/2017 2:15 PM CDT 12/24/2017 2:44 PM CDT us Pau Cruz DO PATHOLOGY/CYTOLOGY Final R esult [facility] [address] [place] [address], from Last 3 Months or Most Recently Relevant to Health Maintenance Insurance [facility] WORKERS COMP Advance Directives * Full Code (Latest Code Status on File) Date Activated Date Inactivated Comments 08/22/2014 10:56 AM 08/22/2014 7:25 PM
--- OUTSIDE RECORDS SUMMARY | 2025-01-15 20:52 | XMS_ITS | Encounter Summary ---
Author Organization [employer] Address [address] [place] [address] Care Team Providers Care Svp Innovation Partnerships Name Role Phone Tim Martin Primary Care Provider [phone] Encounter Details Date Type Department Care Team (Late st Contact Info) Description 03/04/2013 Correspondence [facility] [address] [place] [address] PROOF OF DELIVERY Social History [...] on filedocumented in this encounter Care Teams Svp Innovation Partnerships Relationship Specialty Start Date End Date Tim Martin [place] [address] [place] [address] PCP - General Family Practice 08/18/15 documented as of this encounter
--- OUTSIDE RECORDS SUMMARY | 2025-01-15 20:52 | XMS_ITS | Encounter Summary ---
Author Organization [employer] Address [address] [place] [address] Care Team Providers Care Harp Regulator Name Role Phone Tim Martin Primary Care Provider [phone] Encounter Details Date Type Department Care Team (Late st Contact Info) Description 06/26/2014 Correspondence None No Primary/Referring, Phy HME EQUIPMENT TRAUMA SURGEON TICKET Social History Tobacco Use Types Packs/Day [...] on filedocumented in this encounter Care Teams Harp Regulator Relationship Specialty Start Date End Date Tim Martin MBBS [address] [place], [place] [address] PCP - General Family Practice 08/18/15 documented as of this encounter
--- OUTSIDE RECORDS SUMMARY | 2025-01-15 20:52 | XMS_ITS | Encounter Summary ---
Author Organization [employer] Address [address] [address] Care Team Providers Care Configuration Engineer Name Role Phone Tim Martin Primary Care Provider [phone] Encounter Details Date Type Department Care Team (Late st Contact Info) Description 01/02/2013 Correspondence [facility] [address] [place], [place] [address] Clifton Black MD PRIOR AUTH REQUEST FORM [...] on filedocumented in this encounter Care Teams Configuration Engineer Relationship Specialty Start Date End Date Tim Martin [place] [address] [place] [address] PCP - General Family Practice 08/18/15 documented as of this encounter
--- OUTSIDE RECORDS SUMMARY | 2025-01-15 20:52 | XMS_ITS | Encounter Summary ---
Author Organization [employer] Address [address] [place] [address] Care Team Providers Care Mexican Food Maker Hand Name Role Phone Tim Martin Primary Care Provider [phone] Encounter Details Date Type Department Care Team [...] on filedocumented in this encounter Care Teams Mexican Food Maker Hand Relationship Specialty Start Date End Date Tim Martin MBBS [address] [place] [address] PCP - General Family Practice 08/18/15 documented as of this encounter
--- OUTSIDE RECORDS SUMMARY | 2025-01-15 20:52 | XMS_ITS | Encounter Summary ---
Author Organization [employer] Address [address], [place] [address] Care Team Providers Care Deputy Prosecuting Attorney Name Role Phone Tim Martin Primary Care Provider [phone] Encounter Details Date Type Department Care Team ([facility] st Contact Info) Description 02/04/2013 Correspondence External to [facility] External, [place] [address] IMMUNIZATION RECORD Social History Tobacco Use Types [...] on filedocumented in this encounter Care Teams Deputy Prosecuting Attorney Relationship Specialty Start Date End Date Tim Martin MBBS [address] [address], [place] [address] PCP - General Family Practice 08/18/15 documented as of this encounter
[2025-01-15 20:54] VITALS: BP 133/82; PULSE 104; RESP 22; TEMP 37; O2SAT 96; BMI 22.8
--- NOTE | 2025-01-15 21:41 | ED.ALCOHOL ---
HPI - Alcohol General Chief Complaint: Psychiatric Problem/Disorder Stated Complaint: detox, addiction, mental health Time Seen by Provider: 01/15/25 21:27 History of Present Illness HPI narrative: This 29-year-old female comes in reporting alcohol intoxication. She states that she did have Ativan at home that she should have taken instead. She does have history of alcohol abuse and is regret Ng that she has relapsed. She stated that she began to feel shaky and took Ativan which helped with those symptoms. She comes in for evaluation and treatment. She denies any suicidality. She states that she has not had any other street drugs or prescription medications. Related Data Home Medications ?Medication ?Instructions ?Recorded ?Confirmed hydroxyzine HCl 25 mg tablet 25 mg PO QPM PRN anxiety 02/03/24 01/15/25 sertraline 50 mg tablet 50 mg PO DAILY 02/03/24 01/15/25 Previous Rx's ?Medication ?Instructions ?Recorded lorazepam 0.5 mg tablet (Ativan) 0.5 mg PO TID PRN #10 tabs 01/14/25 Allergies Allergy/AdvReac Type Severity Reaction Status Date / Time No Known Drug Allergies Allergy Verified 01/15/25 21:06 Review of Systems Status of ROS Reports: 10 or more systems reviewed and unremarkable except as noted in History and below Narrative Constitutional: No fevers, no weight gain or loss. Eyes: No discharge. No vision changes. HENT: No congestion, no sore throat, no ear pain. Cardiovascular: No chest pain, no palpitations. Respiratory: No shortness of breath, no wheezes, no cough. Gastrointestinal: No abdominal pain, no vomiting, no diarrhea. Genitourinary: No dysuria, no hematuria. Musculoskeletal: Normal range of motion. Skin: No rashes, no pruritis. Neurological: No dizziness, weakness, sensory change, speech change. Endo/Heme/Allergies: No bruising or bleeding. No polydipsia. Pysch: no suicidality. She reports alcohol abuse. She has anxiety symptoms. All other systems reviewed and are negative. [facility] Social History Smoking Status: Current every day smoker Do you use any of these nicotine containing products: Vaping Products Second hand tobacco smoke exposure: No How often do you have a drink containing alcohol: 4 or more times a week How often do you have six or more drinks on one occasion: Daily or almost daily AUDIT-C Alcohol total score: 8 Non-prescribed substance use: denies use Exam Narrative: Exam Narrative: Constitutional: Well-developed, well-nourished, no acute distress. HEENT: Normocephalic, atraumatic. Neck: Normal range of motion. Nontender. Supple. Heart: Regular. No murmurs. Borderline tachycardia. Intact distal pulses. Lungs: Clear to auscultation. No chest discomfort. No wheezes, rhonchi, or rales. Abdomen: Normal bowel sounds. Nontender. No rebound tenderness. Genitalia: Deferred. Back: No midline tenderness. Normal range of motion. Extremities: Normal range of motion. No injury. Skin: Intact. No rash. Warm. No erythema or pallor. Neurologic: No altered sensation. No weakness. Alert and oriented. Psychiatric: No suicidality. No anxiety or depression. No insomnia. Nursing notes and vitals signs are reviewed. Const: Vital Signs, click to edit/add: Vital Signs - 24 hr 01/15/25 20:54 01/15/25 23:12 Temperature 98.6 F Pulse Rate [Pulse Oximeter] 104 H 94 Respiratory Rate 22 16 Blood Pressure [Ri ght Arm] 115/78 Blood Pressure [Ri ght Upper Arm] 133/82 Pulse Oximetry 96 98 Oxygen Delivery Me thod Room Air Room Air Course Vital Signs Vital signs: Initial Vital Signs Temperature 98.6 F 01/15/25 20:54 Temperature Source Temporal Artery Scan 01/15/25 20:54 Pulse Rate 104 H 01/15/25 20:54 Respiratory Rate 22 01/15/25 20:54 Blood Pressure 133/82 01/15/25 20:54 Blood Pressure Mean 99 01/15/25 20:54 Blood Pressure Position Sitting 01/15/25 20:54 Pulse Oximetry 96 01/15/25 20:54 Oxygen Delivery Method Room Air 01/15/25 20:54 Vital Signs Temperature 98.6 F 01/15/25 20:54 Pulse Rate 104 H 01/15/25 20:54 Respiratory Rate 22 01/15/25 20:54 Blood Pressure 133/82 01/15/25 20:54 Pulse Oximetry 96 01/15/25 20:54 Oxygen Delivery Method Room Air 01/15/25 20:54 Temperature 98.6 F 01/15/25 20:54 Pulse Rate 94 01/15/25 23:12 Respiratory Rate 16 01/15/25 23:12 Blood Pressure 115/78 01/15/25 23:12 Pulse Oximetry 98 01/15/25 23:12 Oxygen Delivery Method Room Air 01/15/25 23:12 Medications Administered Medications: Discontinued Medications Generic Name Dose Route Start Last Admin Trade Name Joaquinq PRN Reason Stop Dose Admin Sodium Chloride 500 mls @ 500 mls/hr 01/15/25 21:39 01/15/25 23:17 0.9 % Sodium Chloride 500 Ml IV 01/15/25 22:38 Infused .Q1H ONE Infusion Ibuprofen 600 mg 01/15/25 23:01 01/15/25 23:11 Ibuprofen 200 Mg Tablet PO 01/15/25 23:02 600 mg ONCE ONE Administration Lorazepam 1 mg 01/15/25 23:18 01/15/25 23:22 Lorazepam 2 Mg/Ml Inj IV 01/15/25 23:19 1 mg ONCE ONE Administration MDM - Alcohol MDM Narrative Medical decision making narrative: This patient comes in with alcohol intoxication and is actually quite pleasant and functional despite a blood alcohol level returning at 0.26. She did receive IV fluids and later a dose of Ativan 1 mg which is helping her feel better. She also received ibuprofen 600 mg orally. The patient states that she would prefer not to go to a detox and plans to call her to see if he will pick her up. Lab Data Labs: Lab Results 01/15/25 01/15/25 Range/Units 21:49 22:51 WBC 6.47 (4.50-11.00) K/uL RBC 4.36 (4.00-5.20) m/uL Hgb 13.3 (12.0-16.0) gm/dL Hct 39.8 (33.0-51.0) % MCV 91 (80-100) fL MCH 31 (26-34) pg MCHC 33 (32-36) gm/dL RDW Coeff of Jennifer 13.0 (11.5-15.5) % Plt Count 273 (140-440) K/uL Neut % (Auto) 46.8 (42.0-72.0) % Lymph % (Auto) 46.8 H (20-44) % Conway % (Auto) 4.0 (0.0-11.0) % Eos % (Auto) 1.1 (0.0-7.0) % Baso % (Auto) 0.5 (0.0-3.0) % Neut # (Auto) 3.03 (1.7-7.0) K/uL Lymph # (Auto) 3.00 H (0.90-2.90) K/uL Conway # (Auto) 0.30 (0.00-0.90) K/UL Eos # (Auto) 0.07 (0.00-0.50) K/uL Baso # (Auto) 0.03 (0.00-0.30) K/uL Abs Immat Gran (auto) 0.05 (0.00-0.30) K/uL Imm/Tot Granulo (auto) 0.8 % Sodium 145 (135-149) mmol/L Potassium 4.2 (3.6-5.1) mmol/L Chloride 109 (96-114) mmol/L Carbon Dioxide 20 (20-32) mmol/L Anion Gap 16 H (7-15) mEq/L BUN 20 (5-24) mg/dL Creatinine 1.1 (0.5-1.5) mg/dL Estimated Creat Clear 66.68 Estimated GFR 69 ml/min Glucose 82 (60-115) mg/dL Calcium 9.4 (8.4-10.6) mg/dL Urine Opiates Screen Negative (Negative) Ur Oxycodone Screen Negative (Negative) Urine Methadone Screen Negative (Negative) Ur Barbiturates Screen Negative (Negative) U Tricyclic Antidepress Negative (Negative) Ur Phencyclidine Scrn Negative (Negative) Ur Amphetamines Screen Negative (Negative) U Methamphetamines Scrn Negative (Negative) U Benzodiazepines Scrn Negative (Negative) Urine Cocaine Screen Negative (Negative) U Marijuana (THC) Screen Negative (Negative) Ur Drug Screen Comment See Note Ethyl Alcohol 0.26 H (0.01-0.03) % Discharge Plan Discharge Clinical Impression: Alcohol intoxication Prescriptions: No Action hydroxyzine HCl 25 mg tablet 25 mg PO QPM PRN (Reason: anxiety) sertraline 50 mg tablet 50 mg PO DAILY lorazepam [Ativan] 0.5 mg tablet 0.5 mg PO TID PRNQty: 10 0RF Follow Up/Referrals: Provider,Not a Local [Primary Care Provider] -
[2025-01-15 22:05] LABS: Basophils Absolute Auto 0.03 K/uL (0.00-0.30); Basophils Percent Auto 0.5 % (0.0-3.0); Eosinophils Absolute Auto 0.07 K/uL (0.00-0.50); Eosinophils Percent Auto 1.1 % (0.0-7.0); Hematocrit 39.8 % (33.0-51.0); Hemoglobin* 13.3 gm/dL (12.0-16.0); Immature Granulocytes Abs Auto 0.05 K/uL (0.00-0.30); Immature Granulocytes Pct Auto 0.8 %; Lymphocytes Percent Auto 46.8 % (20-44); Mean Corpuscular HGB Conc 33 gm/dL (32-36); Mean Corpuscular Hemoglobin 31 pg (26-34); Mean Corpuscular Volume 91 fL (80-100); Neutrophils Absolute Auto 3.03 K/uL (1.7-7.0); Neutrophils Percent Auto 46.8 % (42.0-72.0); Platelet Count* 273 K/uL (140-440); Red Blood Count 4.36 m/uL (4.00-5.20); White Blood Count* 6.47 K/uL (4.50-11.00)
[2025-01-15 22:06] LABS: Chloride* 109 mmol/L (96-114); Potassium* 4.2 mmol/L (3.6-5.1); Sodium* 145 mmol/L (135-149)
[2025-01-15 22:09] LABS: Anion Gap 16 mEq/L (7-15); Blood Urea Nitrogen* 20 mg/dL (5-24); Carbon Dioxide* 20 mmol/L (20-32); Creatinine* 1.1 mg/dL (0.5-1.5); Est. Creatinine Clearance* 66.68; Estimated Glomerular Filt Rate 69 ml/min
[2025-01-15 22:10] LABS: Calcium* 9.4 mg/dL (8.4-10.6); Ethanol* 0.26 % (0.01-0.03); Glucose* 82 mg/dL (60-115)
[2025-01-15 22:13] LABS: Slide Review Reflex No
[2025-01-15] MEDS: 0.9 % SODIUM CHLORIDE 500 ML 500 ML IV (22:23)
--- OUTSIDE RECORDS SUMMARY | 2025-01-15 22:55 | XMS_ITS | Encounter Summary ---
Author Organization [employer] Address [address] [place] [address] Care Team Providers Care Broker Assistant Name Role Phone Tim Martin Primary Care Provider [phone] Encounter Details Date Type Department Care Team (Late st Contact Info) Description 03/04/2013 Correspondence [facility] [address] [place] [address] PROOF OF DELIVERY Social History [...] on filedocumented in this encounter Care Teams Broker Assistant Relationship Specialty Start Date End Date Tmi Martin [place] [address] [place] [address] PCP - General Family Practice 08/18/15 documented as of this encounter
--- OUTSIDE RECORDS SUMMARY | 2025-01-15 22:55 | XMS_ITS | Encounter Summary ---
Author Organization [employer] Address [address] [place] [address] Care Team Providers Care Termination Clerk Name Role Phone Tim Martin Primary Care Provider [phone] Encounter Details Date Type Department Care Team [...] on filedocumented in this encounter Care Teams Termination Clerk Relationship Specialty Start Date End Date Tim Martin MBBS [address] [place], [place] [address] PCP - General Family Practice 08/18/15 documented as of this encounter
--- OUTSIDE RECORDS SUMMARY | 2025-01-15 22:55 | XMS_ITS | Encounter Summary ---
Author Organization [employer] Address [address] [place] [address] Care Team Providers Care Human Insights Lead Ads Marketing Name Role Phone Tim Martin Primary Care Provider [phone] Encounter Details Date Type Department Care Team (Late st Contact Info) Description 01/07/2013 Correspondence [facility] [address] [place], [place] [address] Clifton Black MD PRIOR AUTH REQUEST Social [...] on filedocumented in this encounter Care Teams Human Insights Lead Ads Marketing Relationship Specialty Start Date End Date Tim Martin [place] [address] [place] [address] PCP - General Family Practice 08/18/15 documented as of this encounter
--- OUTSIDE RECORDS SUMMARY | 2025-01-15 22:55 | XMS_ITS | Clinical Summary ---
Author Organization [employer] [facility] Address [address] [place] [address] Care Team Providers Care Boat Outfitting Supervisor Name Role Phone Unavailable Primary Care Provider [...] on file Legal Sex Female 6:48 AM TAX ASSOCIATE ATTORNEY Gender Identity Not on file Sexual Orientation [...] ANTI HIV 1/2 Routine 12/02/2018 12:16 PM TAX ASSOCIATE ATTORNEY Encounter for supervision of normal first in first trimester (HC) ANTI HCV Routine 12/02/2018 12:16 PM TAX ASSOCIATE ATTORNEY Encounter for supervision of normal first in first trimester (HC) COOLING TOWER OPERATOR THIN PREP PAP SCREEN IMAGED Routine 12/24/2017 2:15 PM CDT Screening for malignant neoplasm of cervix from Last 3 Months or Most Recently Relevant to Health Maintenance Results * ANTI HCV (12/02/2018 12:16 PM TAX ASSOCIATE ATTORNEY) HEPATITIS C ANTIBODY Non-React jaylin Non-React jaylin 12/02/2018 4:53 PM TAX ASSOCIATE ATTORNEY [facility] Comment:Antibodies to HCV no t detected; does not exclude the possibility of exposure to HCV. Blood BLOOD SPECIMEN / Unknown Venipuncture / Unknown 12/02/2018 12:16 PM TAX ASSOCIATE ATTORNEY 12/02/2018 12:16 PM TAX ASSOCIATE ATTORNEY Keely MURILLO SEND OUTS Final R esult Performing Organization Address City/[facility]/ZIP Co de Phone Number [facility] [address] [place] [address], * ANTI HIV 1/2 (12/02/2018 12:16 PM TAX ASSOCIATE ATTORNEY) Pathologist [facility] HIV-1/HIV-2 ANTIBODY Non-Reacti ve Non-Reacti ve 12/02/2018 4:54 PM TAX ASSOCIATE ATTORNEY [facility] Comment:HIV-1 p24 and HIV-1/ HIV-2 Ab not detected. Blood BLOOD SPECIMEN / Unknown Venipuncture / Unknown 12/02/2018 12:16 PM TAX ASSOCIATE ATTORNEY 12/02/2018 12:16 PM TAX ASSOCIATE ATTORNEY Keely MURILLO SEND OUTS Final R esult Performing Organization Address City/[facility]/ZIP Co de Phone Number [facility] [address] [place] [address], [place] * COOLING TOWER OPERATOR THIN PREP PAP SCREEN IMAGED [[id number]] (12/24/2017 2:15 PM CDT) Pathologist [facility] Case Report Gynecologic Cytology Report Case: [id number] Authorizing Provider: Pau Cruz DO Collected: 12/24/2017 1415 Ordering Location: [facility] Received: 12/24/2017 1444 Clinic First Screen: Leila Luke Specimen: COOLING TOWER OPERATOR ThinPrep Vial Screening, Cervical 12/31/2017 3:13 PM CDT [facility] INTERPRETATION/ RESULT NEGATIVE FOR INTRAEPITHELIAL LESION OR MALIGNANCY (NIL) (none) 12/31/2017 3:13 PM CDT [facility] at 1513 CDT SPECIMEN ADEQUACY Satisfactory for evaluation Endocervical component present 12/31/2017 3:13 PM CDT [facility] HPV REQUEST HPV if ASCUS 12/31/2017 3:13 PM CDT [facility] Date of LMP 12/10/2017 12/31/2017 3:13 PM CDT [facility] Last Pap Date unsure 12/31/2017 3:13 PM CDT [facility] Last Pap Result First Pap/Unknown 3:13 PM CDT [facility] Abnormal Pap or [place] Bx in last 5 years No 12/31/2017 3:13 PM CDT [facility] Menstrual Status Regular Periods 12/31/2017 3:13 PM CDT [facility] [place] Bx Done Today No 12/31/2017 3:13 PM CDT [facility] Additional Information None given 12/31/2017 3:13 PM CDT [facility] Automated Review Successful 12/31/2017 3:13 PM CDT [facility] Comment:Specimen processed s uccessfully by automated underground utility locator device, ThinPrep Imaging System, [employer] Note The pap test is a screening technique, not a diagnostic procedure. It is used primarily to screen for squamous cancers and precursor lesions. Published studies have shown that it is subject to both false negative and false positive results. The pap test should not be used as the sole means to diagnose or exclude pre-malignant and malignant lesions. Interpreted at [facility] (Central Lab, [facility], [facility], [facility], [facility], [facility], [facility]) 12/31/2017 3:13 PM CDT [facility] Other (Cervical) Non-Blood / Unknown 12/24/2017 2:15 PM CDT 12/24/2017 2:44 PM CDT us Pau Cruz DO PATHOLOGY/CYTOLOGY Final R esult [facility] [address] [place] [address], from Last 3 Months or Most Recently Relevant to Health Maintenance Insurance [facility] WORKERS COMP Advance Directives * Full Code (Latest Code Status on File) Date Activated Date Inactivated Comments 08/22/2014 10:56 AM 08/22/2014 7:25 PM
--- OUTSIDE RECORDS SUMMARY | 2025-01-15 22:55 | XMS_ITS | Encounter Summary ---
Author Organization [employer] Address [address] [place] [address] Care Team Providers Care Triage Nurse Name Role Phone Tim Martin Primary Care Provider [phone] Encounter Details Date Type Department Care Team [...] on filedocumented in this encounter Care Teams Triage Nurse Relationship Specialty Start Date End Date Tim Martin MBBS [address] [place] [address] PCP - General Family Practice 08/18/15 documented as of this encounter
--- OUTSIDE RECORDS SUMMARY | 2025-01-15 22:55 | XMS_ITS | Encounter Summary ---
Author Organization [facility] Address [address], [place] [address] Care Team Providers Care Cashier Or Checker Stock Clerk Name Role Phone Tim Martin Primary Care Provider [phone] Encounter Details Date Type Department Care Team ([facility] st Contact Info) Description 02/04/2013 Correspondence External to [facility] External, [place] [address] IMMUNIZATION RECORD Social History Tobacco Use Types [...] on filedocumented in this encounter Care Teams Cashier Or Checker Stock Clerk Relationship Specialty Start Date End Date Tim Martin MBBS [address] [address], [place] [address] PCP - General Family Practice 08/18/15 documented as of this encounter
--- OUTSIDE RECORDS SUMMARY | 2025-01-15 22:55 | XMS_ITS | Encounter Summary ---
Author Organization [facility] Address [address] [place] [address] Care Team Providers Care Teacher Aide Name Role Phone Tim Martin Primary Care Provider [phone] Encounter Details Date Type Department Care Team (Late st Contact Info) Description 06/26/2014 Correspondence None No Primary/Referring, Phy HME EQUIPMENT RACEBOOK WRITER TICKET Social History Tobacco Use Types Packs/Day [...] on filedocumented in this encounter Care Teams Teacher Aide Relationship Specialty Start Date End Date Tim Martin MBBS [address] [place], [place] [id number] PCP - General Family Practice 08/18/15 documented as of this encounter
--- OUTSIDE RECORDS SUMMARY | 2025-01-15 22:56 | XMS_ITS | Encounter Summary ---
Author Organization [facility] Address [address], [place] [address] Care Team Providers Care Senior Software Qa Analyst Name Role Phone Tim Martin Primary Care Provider [phone] Encounter Details Date Type Department Care Team (Late st Contact Info) Description 01/02/2013 Correspondence [facility] [address] [place], [place] [address] Clifton Black MD PRIOR AUTH REQUEST FORM [...] on filedocumented in this encounter Care Teams Senior Software Qa Analyst Relationship Specialty Start Date End Date Tim Martin [place] [address] [place] [address] PCP - General Family Practice 08/18/15 documented as of this encounter
--- OUTSIDE RECORDS SUMMARY | 2025-01-15 22:56 | XMS_ITS | Clinical Summary ---
[facility] Address [address] [place] [address] Care Team Providers Care Wheat Grower Name Role Phone Tim Martin Primary Care Provider [phone] Source Comments You are receiving this document as you are listed as the primary care provider,follow-up provider, or the patient has been referred to you for consultation.This is in compliance with the Medicare and[facility] EHR Incentive Program,which states Providers who transition their patient to another setting of careor provider of care or refers their patient to another provider of care shouldprovide summary care record for each transition of care or referral. [facility] Allergies No known active allergies Medications ZYRTEC [...] 4,1993,1992,1993 Flu Vac Preserv Free (3+yrs) 10/16/2013 [id number] 09/14/2009 HepB Ped/Adol (0-18 yrs) 01/30/1994,1993,0 1993 [...] Comments Blood Pressure 107/79 10/27/2016 10:43 AM ALIGNMENT MECHANIC Pulse 92 10/27/2016 10:43 AM ALIGNMENT MECHANIC Temperature 37.1 C (98.7 F) 03/15/2015 2:43 PM CDT Respiratory Rate - - Oxygen Saturation 97% 01/14/2015 12:19 PM CDT Inhaled Oxygen Concentration - - Weight 51.3 kg (113 lb 2 oz) 10/27/2016 10:43 AM ALIGNMENT MECHANIC Height 162.6 cm (5' 4) 10/27/2016 10:43 AM ALIGNMENT MECHANIC Body Mass Index 19.42 10/27/2016 10:43 AM ALIGNMENT MECHANIC Plan of Treatment Health Maintenance Due Date [...] TEST, ROUTINE Routine 10/27/2016 12: 18 PM ALIGNMENT MECHANIC Routine health maintenance Screening for cervical cancer HIV ANTIBODY Routine 12/11/2013 4:21 PM ALIGNMENT MECHANIC Supervision of normal first , first trimester from Last 3 Months or Most Recently Relevant to Health Maintenance Results * Pap Test, Routine (10/27/2016 12:18 PM ALIGNMENT MECHANIC) Cytology, Pap (NOTE) Vessel Specialist Cytology Report Patient Name: ALVIN TOBIAS Taken: [...] 10/04/2016 Microscopic Description Microscopic examination is performed. [facility] Department of Pathology [address] [place] [id number] [facility] 10/27/2016 12:1 8 PM ALIGNMENT MECHANIC 10/27/2016 6:33 PM ALIGNMENT MECHANIC us Viviana Matamoros MD LAB_1 Final Resul t Performing Organization Address City/[facility] Co de Phone Number [facility] [phone] * HIV ANTIBODY (12/11/2013 4:21 PM ALIGNMENT MECHANIC) HIV 1/2 Antibody Negative (Non Reactive) [facility] Comment: HIV Antibody testing may be falsely negative during the window period. If the patient has had recent exposure (within the past four weeks), consider contacting Infectious Diseases for clarification. 12/11/2013 4:21 PM ALIGNMENT MECHANIC 12/11/2013 4:24 PM ALIGNMENT MECHANIC Narrative [facility] - 12/12/2013 3:34 PM ALIGNMENT MECHANIC Performed at [facility], [address] [address] us Barbie Steinberg [employer]OROUGHBRED HORSE FARM MANAGER, [employer] LAB_1 Fin al Result Performing Organization Address City/[facility]/ZIP Co de Phone Number [facility] [phone] from Last 3 Months or Most Recently Relevant to Health Maintenance Insurance BCBS OUT OF STATE Care Teams Wheat Grower Relationship Specialty Start Date End Date Tim Martin MBBS [address] [place] [address] PCP - General Family Practice 08/18/15
[2025-01-15 23:03] LABS: Amphetamine Screen Urine Negative (Negative); Barbiturate Screen Urine Negative (Negative); Benzodiazepines Screen Urine Negative (Negative); Cannabinoid Screen Urine Negative (Negative); Cocaine Screen Urine Negative (Negative); Methadone Screen Urine Negative (Negative); Methamphetamines Screen Urine Negative (Negative); Opiate Screen Urine Negative (Negative); Oxycodone Screen Urine Negative (Negative); Phencyclidine Screen Urine Negative (Negative); Tricyclic Antidepressant Urine Negative (Negative)
[2025-01-15] MEDS: IBUPROFEN 200 MG TABLET 600 MG PO (23:11)
[2025-01-15 23:12] VITALS: BP 115/78; PULSE 94; RESP 16; O2SAT 98
[2025-01-15] MEDS: LORazepam 2 MG/ML inj 1 MG IV (23:22)
[2025-01-16] MEDS: LORazepam 2 MG/ML inj 1 MG IVP (01:12)
[2025-01-16 03:24] VITALS: RESP 16
== END 2025-01-16 08:30 | disposition home or self-care (01) ==
PROVIDERS: Emergency Provider Emergency Medicine Emergency Medical Services
DX: F10.20 Alcohol dependence, uncomplicated (principal)
CPT/HCPCS: 36415; 80048; 80306; 82077; 85025; 96374; 96376; 99284; A9270; J2060; J7030